=== PATIENT | female | born 1990 | race Caucasian/White ===

== ENCOUNTER 2019-07-14 10:53 | Outpatient (CLI) | payer OTHER, SELFPAY ==
--- NOTE | 2019-07-14 11:08 | ECG_ITS ---
Measurements Intervals [place] Rate: 84 P: 51 [place]: 176 QRS: 67 QRSD: 97 T: 22 QT: 376 QTc: 447 Interpretive Statements SINUS RHYTHM POSSIBLE LEFT ATRIAL ENLARGEMENT INCOMPLETE RIGHT BUNDLE BRANCH BLOCK BORDERLINE ST ABNORMALITY- ANTERIOR LEADS BORDERLINE ECG Electronically Signed On 07-14-2019 11:29:48 CDT by Ziggy Quesada D.O.
== END 2019-07-14 10:54 | disposition home or self-care (01) ==
LOC: ANHLAB 11:01 → ANHCARD 11:05
PROVIDERS: PCP Internal Medicine; Visit Provider Internal Medicine
DX: I10 Essential (primary) hypertension (principal); I45.10 Unspecified right bundle-branch block
CPT/HCPCS: 93005

== ENCOUNTER 2019-09-08 13:30 | Outpatient (CLI) | payer OTHER, MEDICAID, SELFPAY ==
--- NOTE | 2019-09-08 13:48 | ECHO_ITS ---
Patient Info Name: Ginette Ray Age: 29 years : 1990 Gender: Female Ht: 73 in Wt: 250 lbs BSA: 2.45 m2 BP: 131 / 84 mmHg Technical Quality: Good Exam Date: 09/08/2019 1:53 PM Exam Location: [facility] Patient Status: Outpatient Admit Date: 09/08/2019 Staff Ordering Physician: Jessica Robbins NP Chuck Wagon Driver: Bhanu Rose RDCS, RT Attending Provider: Jessica Robbins NP Referring Physician: Rosendo OREILLY; Exam Type: CA echo doppler color flow Study Info Indications I10 - Essential (primary) hypertension Complete two-dimensional, color flow and Doppler transthoracic echocardiogram is performed. Summary 1. Left ventricular chamber dimension is normal. 2. Left ventricular systolic function is normal, estimated at 60-65%. 3. The left ventricular diastolic function is normal. 4. E/e' 6 is not elevated. 5. Global longitudinal strain is normal at -19.3%. 6. There is trace tricuspid valve regurgitation. Left Ventricle E/e' 6 is not elevated. Global longitudinal strain is normal at -19.3%. Left ventricular chamber dimension is normal. Left ventricular systolic function is normal, estimated at 60-65%. The left ventricular diastolic function is normal. Right Ventricle Right ventricular chamber dimension is normal. Right ventricular systolic function is normal. Left Atria Left atrial chamber dimension is normal. Right Atria Right atrial chamber dimension is normal. Aortic Valve Cannot determine number of aortic valve leaflets. The aortic valve is not well visualized. There is no aortic valve stenosis. There is no aortic valve regurgitation. Pulmonic Valve There is no pulmonic regurgitation. Mitral Valve There is no mitral valve stenosis. There is no mitral valve regurgitation. Tricuspid Valve RVSP is not calculated due to an inadequate TR jet. There is trace tricuspid valve regurgitation. Pericardium/Pleural There is no pericardial effusion. Inferior Vena Cava Normal inferior vena cava with >50% collapse upon inspiration consistent with normal right atrial pressure, 5 mmHg. Aorta The aortic root size at the sinus of Valsalva is normal. Left Ventricular Outflow Tract Name Value Normal LVOT 2D LVOT Diameter 2.1 cm LVOT Doppler LVOT Peak Gradient 5 mmHg LVOT Mean Gradient 2 mmHg LVOT VTI 20 cm LVOT VTI/AV VTI Ratio 0.6 LVOT Stroke Volume 68 ml LVOT CO 6.3 l/min LVOT CI 2.6 l/min/m2 Mitral Valve Name Value Normal MV Doppler MV Decel [place] 393 cm/s2 MV PHT 68 ms MV Area (PHT) 3.3 cm2 4.0-5.0
== END 2019-09-08 13:31 | disposition home or self-care (01) ==
PROVIDERS: PCP Internal Medicine; Visit Provider Nurse Practitioner
DX: I10 Essential (primary) hypertension (principal)
CPT/HCPCS: 93306

== ENCOUNTER 2019-10-10 02:13 | Emergency (ER) | payer OTHER, MEDICAID, SELFPAY ==
--- NOTE | ~2019-10-10 | CT_ITS ---
EXAMINATION: CTA chest PE protocol DATE: 10/10/2019 03:59 INDICATION: Dyspnea. Right-sided back pain. TECHNIQUE: Computed tomography (CT) pulmonary angiogram of the chest was performed with 100 mL Omnipa que-350 intravenous contrast. Additional 3D reconstructions utilizing coronal maximum intensity proje ction (MIP) were performed. Automated exposure control and iterative reconstruction technique were em ployed. The dose-length product was 813.93 mGy-cm. COMPARISON: None FINDINGS: Good contrast opacification of the pulmonary arteries. There is mild streak artifact from dense contr ast in the superior vena cava and right atrium. No significant motion artifact. No pulmonary embolism . Minimal groundglass opacities in the dependent left lower lobe and favor atelectasis over pneumonia . Mild discoid atelectasis in the right middle lobe. Couple small noncalcified pleural plaques at the posterior right lower lobe. No pulmonary edema, pleural effusion or pneumothorax. Heart size is norm al. No pericardial effusion. Thoracic aorta is normal in caliber with no dissection. No pathologicall y enlarged thoracic lymphadenopathy. Diffuse hepatic steatosis. Mild thoracic dextrocurvature with mi ld spondylosis. IMPRESSION: 1. No pulmonary embolism or other acute cardiopulmonary disease. Reviewed, dictated and finalized at location A.
--- NOTE | ~2019-10-10 | CT_ITS ---
EXAMINATION: CT abdomen pelvis wo con DATE: 10/10/2019 02:48 INDICATION: Right flank pain. TECHNIQUE: Computed tomography (CT) of the abdomen and pelvis was performed without intravenous contr ast. Automated exposure control and iterative reconstruction technique were employed. The dose-length product was 1546.45 mGy-cm. COMPARISON: None FINDINGS: Lung bases are clear. Heart size is normal. No pericardial or pleural effusion. Liver, gallbladder, s pleen, pancreas, bilateral adrenal glands and kidneys are normal. No urolithiasis or hydronephrosis. Bladder, anteverted uterus and bilateral ovaries are normal. Trace amount of likely physiologic free fluid in the pelvis. Bowels including the appendix are normal. No pathologically enlarged abdominal o r pelvic lymphadenopathy. Minimal lower lumbar spondylosis. IMPRESSION: 1. No acute intra-abdominal/pelvic process. Reviewed, dictated and finalized at location A.
--- NOTE | 2019-10-10 02:19 | ED.GENADULT ---
HPI - General Adult General Chief complaint: Urogenital-Female Stated complaint: R Flank Pain Time Seen by Provider: 10/10/19 02:18 Source: patient Mode of arrival: ambulatory Limitations: no limitations History of Present Illness HPI narrative: Patient is a 29-year-old female who presents for evaluation of dysuria and right flank pain. Patient reports right flank pain began earlier yesterday afternoon, has been mostly constant into this morning. Pain is dull, aching in nature, at times moderate to severe, sharp and stabbing. Pain is associated with nausea. No suprapubic pain. No hematuria. Mild dysuria earlier today, no frequency or hesitancy. Patient denies vaginal bleeding or discharge. Patient states she wants was diagnosed with a possible passed kidney stone when she came to the emergency department with flank pain, had hematuria but no stone found on imaging. Related Data Home Medications Medication Instructions Recorded Confirmed albuterol sulfate 2.5 mg INHALATION TID PRN ml 07/23/19 09/25/19 betamethasone dipropionate 0.05 % 1 applic TOPICAL BID PRN 07/23/19 09/25/19 topical cream drospirenone 3 mg-ethinyl 1 tablet PO DAILY 07/23/19 09/25/19 estradiol 0.02 mg tablet Allergies Allergy/AdvReac Type Severity Reaction Status Date / Time ciprofloxacin Allergy Unknown Anaphylaxis Verified 10/10/19 02:29 Review of Systems Review of Systems: Narrative: CONSTITUTIONAL: Denies fever. CARDIOVASCULAR: Denies chest pain, palpitations, or edema. RESPIRATORY: Denies cough or dyspnea. GASTROINTESTINAL: Denies abdominal pain, nausea, vomiting, or diarrhea. Reports right flank pain. GENITOURINARY: Reports dysuria, denies hematuria SKIN: Denies rash or itching. MUSCULOSKELETAL: Denies joint pain, or myalgia. NEUROLOGIC: Denies headache, numbness, or weakness. [facility] Past Medical History Medical History Anxiety and depression Asthma Eczema Hypertension Surgical History Surgical History H/O endoscopy 08/2018 Family History Family History (Updated 07/22/19 @ 16:25 by Aiyana Driver [facility]) Father Family history unknown Mother Drug misuser in household Social History Social History Smoking status: Never smoker Alcohol intake: current Exam Narrative: Exam Narrative: GENERAL: Awake, alert, conversant HEAD: Normocephalic, atraumatic. EYES: PERRLA and EOMI. ENT: Nares clear, no rhinorrhea or epistaxis. Mucous membranes moist. NECK: Supple. CHEST: No respiratory distress, breathing even and non labored HEART: Regular rate, sinus rhythm ABDOMEN:Non distended, non tender, no suprapubic tenderness, no reproducible flank tenderness EXTREMITIES: Normal range of motion. No edema. SKIN: Warm, dry, no rash. NEURO:No focal deficits. Alert and oriented x3 Course Vital Signs Vital signs: Vital Signs Temperature 36.9 C 10/10/19 02:20 Pulse Rate 91 10/10/19 02:20 Respiratory Rate 18 10/10/19 02:20 Blood Pressure 143/89 H 10/10/19 02:20 Pulse Oximetry 100 10/10/19 02:20 Temperature 36.9 C 10/10/19 02:20 Pulse Rate 73 10/10/19 04:31 Respiratory Rate 18 10/10/19 04:31 Blood Pressure 125/81 10/10/19 04:31 Pulse Oximetry 100 10/10/19 04:31 Medical Decision Making MDM Narrative Medical decision making narrative: Patient presented initially for evaluation of flank pain and dysuria. At the time of assessment, ABCs are intact and vital signs are stable. When I reassessed the patient, she then was explaining to me she is also been experiencing some chest pain and shortness of breath with her symptoms. She states these are not severe, and have been more chronic for her over the past few weeks. Because patient had an elevated d-dimer, obtain a CTA which shows bilateral, peripheral groundglass opacities in the li
[2019-10-10 02:20] VITALS: BP 143/89; PULSE 91; RESP 18; TEMP 36.9; O2SAT 100
[2019-10-10 02:32] LABS: Basophils Absolute Auto 0.1 K/mm3 (0.0-0.1); Basophils Percent Auto 0.5 % (0.2-1.2); Eosinophils Absolute Auto 0.4 K/mm3 (0-0.3); Hematocrit 38.6 % (37.0-47.0); Hemoglobin 12.9 g/dL (12.0-15.0); Immature Granulocyte Absolute 0.05 K/mm3 (0.00-0.031); Immature Granulocyte Percent A 0.4 % (0-0.5); Lymphocytes Absolute Auto 4.77 K/mm3 (0.9-3.2); Lymphocytes Percent Auto 33.8 % (18.3-44.2); Mean Corpuscular HGB Conc 33.4 g/dl (32-36); Mean Corpuscular Hemoglobin 29.7 pg (26-34); Mean Corpuscular Volume 88.9 fl (80-100); Mean Platelet Volume 10.9 fl (7.4-10.4); Monocytes Absolute Auto 0.9 K/mm3 (0.1-0.6); Monocytes Percent Auto 6.3 % (2.6-8.5); Neutrophils Absolute Auto 7.9 K/mm3 (1.3-6.7); Platelet Count Result 245 k/mm3 (150-375); Red Blood Count 4.34 M/mm3 (4.2-5.4); Red Cell Distribution Width 13.2 % (11.5-14.5); White Blood Count 14.1 K/mm3 (4.5-10.0)
[2019-10-10] MEDS: SODIUM CHLORIDE 0.9% IV 1,000 ML 999 ML IV CONT (02:32)
[2019-10-10] MEDS: ONDANSETRON INJ 4 MG/2 ML VIAL IV PUSH (02:33)
[2019-10-10] MEDS: MORPHINE SULFATE 4 MG/ML INJ IV PUSH (02:33)
[2019-10-10 02:34] LABS: Add Urine Microscopic? NO; Appearance Urine Clear (Clear); Bilirubin Urine Negative (Negative); Blood Urine Negative (Negative); Color Urine Yellow (Yellow); Glucose Urine UA Negative (Negative); Ketones Urine Negative (Negative); Leukocyte Esterase Ur Negative LEU/UL (Negative); Nitrate Urine Negative (Negative); Protein Urine Negative (Negative); Specific Grav Ur 1.027 (1.001-1.035); Urobilinogen Urine Negative mg/dL (<2.0)
[2019-10-10 02:46] LABS: Blood Urea Nitrogen 13 mg/dL (7-17); Calcium 9.3 mg/dL (8.4-10.2); Carbon Dioxide 25 mmol/L (22-30); Chloride 104 mmol/L (98-107); Estimated CRCL calculation 131 ml/min; Estimated Glomerular Filt Rate > 60; Glucose 99 mg/dL (65-105); Potassium 3.8 mmol/L (3.4-5.0); Sodium 138 mmol/L (137-145)
--- NOTE | 2019-10-10 03:00 | ECG_ITS ---
Measurements Intervals [place] Rate: 65 P: 29 [place]: 164 QRS: 62 QRSD: 94 T: 26 QT: 412 QTc: 428 Interpretive Statements SINUS RHYTHM BASELINE ARTIFACT- V3, V5 NORMAL ECG Electronically Signed On 10-11-2019 7:20:28 CDT by Ziggy Quesada D.O.
[2019-10-10 03:23] VITALS: BP 126/75; PULSE 66; RESP 18; O2SAT 100
[2019-10-10 03:23] LABS: D Dimer 0.53 ug/mL (<0.48)
[2019-10-10 03:33] LABS: Troponin I < 0.012 ng/mL (0.000-0.034)
[2019-10-10 04:31] VITALS: BP 125/81; PULSE 73; RESP 18; O2SAT 100
[2019-10-10 13:33] LABS: SARS-CoV-2 RNA PCR Negative
== END 2019-10-10 04:50 | disposition home or self-care (01) ==
PROVIDERS: Emergency Provider Emergency Medicine; PCP Internal Medicine
DX: R91.8 Other nonspecific abnormal finding of lung field (principal); R10.9 Unspecified abdominal pain; Z20.828 Contact with and (suspected) exposure to other viral communicable diseases; J45.909 Unspecified asthma, uncomplicated; I10 Essential (primary) hypertension
CPT/HCPCS: 36415; 71275; 74176; 80048; 81003; 81025; 84484; 85025; 85380; 87635; 93005; 96361; 96365; 96375; 99284; C9803; J0131; J2270; J2405; J7030; Q9967; U0003

== ENCOUNTER 2019-10-23 10:33 | Outpatient (CLI) | payer OTHER, MEDICAID, SELFPAY ==
--- NOTE | ~2019-10-23 | XR_ITS ---
XR chest 2V DATE: 10/23/2019 10:58 INDICATION: Nonspecific abnormal finding of lung field; minimal groundglass opacities in the dependen t left lower lobe favoring atelectasis over pneumonia were reported on 11/06/2019 CTA chest scan TECHNIQUE: PA and lateral views COMPARISON: 11/06/2019 CTA chest scan 09/07/2018 2 view chest FINDINGS: The lungs are clear of infiltrate or consolidation. Normal heart size. No hilar or mediastinal enlargement. No pleural effusion or pulmonary vascular con gestion or pneumothorax. IMPRESSION: No active cardiopulmonary disease Reviewed, dictated and finalized at location A.
== END 2019-10-23 10:34 | disposition home or self-care (01) ==
LOC: ANHIMG 10:40
PROVIDERS: PCP Internal Medicine; Visit Provider Clinical Nurse Specialist
DX: R91.8 Other nonspecific abnormal finding of lung field (principal)
CPT/HCPCS: 71046

== ENCOUNTER → 2020-05-22 00:22 | Outpatient (CLI) | payer OTHER, MEDICAID, SELFPAY ==
[2020-05-22 19:49] LABS: SARS-CoV-2 RNA PCR Negative
== END ==
PROVIDERS: Clinical Nurse Specialist; PCP Internal Medicine; Visit Provider Surgery
DX: Z01.812 Encounter for preprocedural laboratory examination (principal); Z20.822 Contact with and (suspected) exposure to COVID-19
CPT/HCPCS: C9803; U0003; U0005

== ENCOUNTER 2020-05-26 00:52 | Day surgery (SDC) | payer OTHER, MEDICAID, SELFPAY ==
[2020-05-20 08:57] VITALS: BMI 34.9
--- NOTE | 2020-05-25 13:01 | WPDANESEPPF ---
Anes - Initial Pre Proc Eval Procedure: Operation Date: 05/26/20 12:00 Proposed Procedures p Excision Of Pilonidal Cyst With Tracts - Cj Adam MD Date/Time: 05/25/20 13:01 Surgeon: Cj Adam MD Pre Op Diagnosis: Pilonidal Cyst Patient Data Age: 29 Gender: F Height: 1.85 m Weight: 120.3 kg Allergies Allergy/AdvReac Type Severity Reaction Status Date / Time ciprofloxacin Allergy Severe Anaphylaxis Verified 05/26/20 10:29 Home Medications Medication Instructions Recorded Confirmed Type betamethasone dipropionate 0.05 % 1 applic TOPICAL BID PRN #45 gm 11/03/19 05/26/20 Rx topical cream albuterol sulfate 90 mcg/actuation 2 puff INHALATION Q4-6H PRN #18 gm 01/05/20 05/26/20 Rx aerosol inhaler albuterol sulfate 2.5 mg INHALATION TID PRN #180 ml 01/13/20 05/26/20 Rx drospirenone (contraceptive) 4 mg 4 mg PO DAILY #84 tablet 03/18/20 05/26/20 Rx (28) tablet lamotrigine 50 mg disintegrating 200 mg PO DAILY tablet 03/22/20 05/26/20 History tablet folic acid 1 mg tablet 1 mg PO DAILY 03/29/20 05/26/20 History methotrexate sodium 2.5 mg tablet 15 mg PO WEEKLY 03/29/20 05/26/20 History lisinopril 10 mg PO DAILY 05/20/20 05/26/20 History Patient hx anesthesia problems: none Family hx anesthesia problems: none PMFSH Past Medical History Medical History Anxiety and depression Asthma Bipolar disorder Chlamydia Eczema GERD (gastroesophageal reflux disease) History of gastric ulcer Hypertension Surgical History Surgical History H/O endoscopy 08/2018 Family History Family History Father Family history unknown Mother Drug misuser in household Diabetes mellitus Grandparent Skin cancer Social History Social History Smoking status: Never smoker Alcohol intake: current Living arrangements: with family 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 Questions were solicited and answers provided to the satisfaction of the patient/family/POA.
[2020-05-26] VITALS (7 sets, daily range): BP systolic 107–131; BP diastolic 58–81; PULSE 85–116; RESP 15–26; TEMP 36.2–37.3; O2SAT 96–100
--- NOTE | 2020-05-26 10:20 | PM.HPGS ---
History of Present Illness History of Present Illness Consent: Risks, benefits, and alternatives have been discussed and questions answered. Patient agrees to proceed with procedure. Chief complaint: Pilonidal Cyst Narrative: Ginette Ray is a 29 year old female that presented about 2 months ago to the office at the request of Saadia Canchola APN for an evaluation of an pilonidal cyst. Patient reports that she has had bleeding about 2-3 times a week for several weeks in the intergluteal cleft prior to her Mar 2020 office visit. Patient reports she had a cyst lanced in the same area about 4 years ago at the ER. She reports that she was placed on antibiotics and the area healed completely and she has not had any problems until just before her recent office visit several months ago. She reports 4 years ago she noticed a bump first, however this time she just noticed drainage in the area. She reports that since she noticed the drainage she has been making sure to take showers daily and keep the area clean and dry to keep it from getting infected. Most recently the area has been quite clean with minimal if any drainage. Other medical history includes asthma. She was just diagnosed with RA in early Mar [address] Subramanian with [facility] in [facility]. She was just placed on Methotrexate and Prednisone for this. She reports the prednisone is only for one month until the Methotrexate has a chance to get working. She is currently taking the Methotrexate once weekly. Review of Systems Constitutional: Constitutional: Reports no additional constitutional complaints, Reports fatigue and Denies malaise Eyes: Eyes: Denies change in vision and Denies loss of vision ENT: Reports Normal hearing present, Denies change in voice, Denies dizziness, Denies hoarseness and Denies sore throat Cardiovascular: Cardiovascular: Denies chest pain, Denies leg edema and Denies dyspnea Respiratory: Respiratory: Denies cough, Denies dyspnea and Denies wheezing Gastrointestinal: Gastrointestinal: Denies hematochezia, Denies change in bowel habits and Denies heartburn Genitourinary: Genitourinary: Denies urinary frequency and Denies urinary incontinence Integumentary/Breasts: Comments: Patient has small pore- like openings that occasionally give her trouble along the crease. Neurologic: Reports Normal hearing present, Denies confusion, Denies dizziness, Denies loss of vision, Denies memory loss and Denies seizure-like activity Psychiatric: Psychiatric: Denies confusion, Denies depression and Denies memory loss Endocrine: Endocrine: Denies cold intolerance and Reports fatigue Hematologic/Lymphatic: Hematologic/Lymphatic: Denies easy bleeding and Denies easy bruising Allergic/Immunologic: Allergic/Immunologic: Denies wheezing PMFSH Past Medical History Medical History Anxiety and depression Asthma Bipolar disorder Chlamydia Eczema GERD (gastroesophageal reflux disease) History of gastric ulcer Hypertension Surgical History Surgical History H/O endoscopy 08/2018 Family History Family History Father Family history unknown Mother Drug misuser in household Diabetes mellitus Grandparent Skin cancer Social History Social History Smoking status: Never smoker Alcohol intake: current Living arrangements: with family 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
[2020-05-26] MEDS: LACTATED RINGERS 1,000 ML 30 ML IV CONT ×2 (11:09→14:24)
--- NOTE | 2020-05-26 12:50 | WPDHPUPDATE1 ---
History and Physical Update Update Date/Time: 05/26/20 12:50 History and Physical has been reviewed, including an updated exam of the patient. There are NO changes in the patient's condition. Risks, benefits, and alternatives of Excision of pilonidal cysts and tracts have been discussed and questions answered. Patient agrees to proceed with procedure.
[2020-05-26] MEDS: ceFAZolin 3 GM/D5W 100 ML 100 ML IVPB (12:57)
[2020-05-26] MEDS: BUPIVACAINE/EPINEPHRINE 0.5% 30 ML VIAL INFILTRATE (13:01)
--- NOTE | 2020-05-26 14:27 | PM.PROC ---
Procedure Note - Detailed Date of procedure: 05/26/20 Pre-op diagnosis: Pilonidal Cyst Post-op diagnosis: same Procedure performed: Excision of multiple pilonidal cysts and tracts in crease Description of procedure: The patient was brought to the operating room and anesthetized on the OR cart prior to being rolled prone on the operating room table. See anesthesia note regarding preop assessment and intubation. Once the patient was appropriately positioned prone on the operating table the buttock cheeks were taped open with nylon tape after applying some benzoin to the skin of the area just lateral to the crease bilaterally. Patient was placed in a slightly head-down knees down position (prone,partially harsha-knifed position). Following this careful prep with Betadine was completed and the area was prepped and draped exposing the serafin crease with a sterile lap placed over the anal opening area. Time-out was performed confirming patient and site of surgery with the surgery team. Following this I use indelible ink marker to carefully outline a S-shaped excision of the 4 openings noted at the serafin crease. It appears that one is larger than when I saw it in the office and so probably there was 2 at that time since I thought I saw 5 at the office. The total length of this incision was about 5 cm. I started more to the patient's left side inferiorly and more to the patient's right side superiorly. Local anesthetic was then infiltrated along the proposed line of incision in both areas with 0.5% Marcaine with epinephrine. Following this incision was made along the previously outlined hess for the incision and this allowed us to perform a S-shaped excision of the skin surrounding the openings to these tracks and then continuing straight down into the subcutaneous tissue we went down to presacral fascia and carefully came underneath all the tracks. I entered one of them superiorly but then I extended my incision slightly out in the subcu tissue to completely excise this one tract. Upon removal of the skin and subcutaneous tissue and the tracts I measured the length of the skin ellipse which was S shaped and it was about 5 cm long and was about 1 cm wide at its middle. Following this closure was obtained after rinsing the wound with approximately 100 cc of sterile saline. I used 2-[address] interrupted buried sutures at 2 different levels in the subcutaneous tissues to bring this wound together after we un-taped the buttocks so that the skin would nicely come together in the midline. We maintained the slightly S-shaped curve of the closure when we did this. On the skin surface interrupted sutures of 3-0 Nylon were used in a vertical mattress technique to bring the skin edges together. The area appeared to be clean and there was no signs of significant infection during the excision. Dressing was applied using a Telfa then an unfolded super sponge followed by 2 Tegaderms to completely seal the dressing on the site leaving the anal opening uncovered. Patient tolerated the procedure well' Estimated blood loss less than 10 cc. Surgeon: Cj Adam MD Fire Operations Forester: MAGDIEL Mendoza, OR 1st assist and MAGDIEL Conner, REGIONAL MEDICAL DIRECTOR. Estimated blood loss (mL): 10 Drains: No Packing: No Pathology: yes (Skin surrounding pilonidal cysts and tracks) Complications: No immediate complications Condition: stable Disposition: PACU Findings: One larger opening that seemed to connect to a larger underlying pilonidal cyst that had granulation tissue within it. The other smaller cysts connected to tracks underlying them but we completely excised all of these during our excision. No difficulty or tension with the incision coming together as we closed.
--- NOTE | 2020-05-26 14:46 | SUR.PHASEI ---
dr hammonds here and talked with pt.
[2020-05-26] MEDS: fentaNYL CITRATE INJ (*CRX) 100 MCG/2 ML VIAL 25 MCG IV PUSH ×2 (15:24→15:26)
== END 2020-05-26 16:20 | disposition home or self-care (01) ==
PROVIDERS: PCP Internal Medicine; Visit Provider Surgery
PROC: (CPT 11772; principal; 2020-05-26 12:00)
DX: L05.91 Pilonidal cyst without abscess (principal); I10 Essential (primary) hypertension; K21.9 Gastro-esophageal reflux disease without esophagitis; F41.8 Other specified anxiety disorders; J45.909 Unspecified asthma, uncomplicated; F31.9 Bipolar disorder, unspecified; Z87.11 Personal history of peptic ulcer disease; E66.9 Obesity, unspecified; Z68.35 Body mass index [BMI] 35.0-35.9, adult
CPT/HCPCS: 11772; 88304; 88305; A9270; C9803; J0330; J0690; J1100; J1170; J2250; J2405; J2704; J3010; J7120; U0003; U0005

== ENCOUNTER 2020-06-21 12:49 | Emergency (ER) | payer OTHER, MEDICAID, SELFPAY ==
--- NOTE | ~2020-06-21 | XR_ITS ---
EXAMINATION: XR lumbar spine min 4V, XR sacrum coccyx min 2V EXAM DATE: 06/21/2020 14:19 INDICATION: Initial encounter following injury, with pain of the lumbar spine, sacrum. Fall. TECHNIQUE: Lumber spine frontal, lateral, bilateral oblique, lateral L5-S1 projections for interpreta tion. Frontal, inlet, lateral projections of the sacrum. Correlation was made with abdomen pelvis CT 10/10/2019. FINDINGS: There is mild anterior wedging of the T11 and T12 vertebral bodies which is more likely chr onic or congenital finding than acute compression fracture (there is no step off or cortical break to suggest it is acute). There are small Schmorl's nodes at the lower thoracic endplates, mild spondyl osis. The vertebral body and disc heights are otherwise well maintained. There are no acute fractur es identified. No spondylolysis. Sacrum, sacroiliac joints, sacral arcuate lines are intact. Mild lum bar facet arthropathy. Paraspinal soft tissue is unremarkable. IMPRESSION: 1. Mild anterior wedged appearance T11 and T12 more likely chronic or congenital finding than acute compression fracture. 2. Mild spondylosis. Reviewed, dictated and finalized at location A. IMPRESSION: 1. Mild anterior wedged appearance T11 and T12 more likely chronic or congenit al finding than acute compression fracture. 2. Mild spondylosis.
[2020-06-21 12:56] VITALS: BP 145/84; PULSE 94; RESP 16; TEMP 36.6; O2SAT 94
[2020-06-21] MEDS: diazePAM (*CRX) 5 MG TABLET PO (13:45)
[2020-06-21] MEDS: KETOROLAC (*BKC) 60 MG/2 ML VIAL IM (13:45)
--- NOTE | 2020-06-21 13:51 | ED.GENADULT ---
HPI - General Adult General Chief complaint: Back Pain/Injury Stated complaint: fell- back pain Time Seen by Provider: 06/21/20 12:51 Source: patient and family Mode of arrival: ambulatory Limitations: no limitations History of Present Illness HPI narrative: Patient is a 29-year-old female who presents to emergency department for evaluation of acute low back pain status post fall patient was pulled down by her dog landing on her buttock and twisting to the side and now has pain in the right paraspinal lumbar musculature down into the sacrum patient denies any head injury syncope loss of consciousness injury occurred just prior to arrival patient has not taken anything for her symptoms and on arrival does not appear distressed and is uncomfortable appearing with activity and movement Related Data Home Medications Medication Instructions Recorded Confirmed lamotrigine 50 mg disintegrating 200 mg PO DAILY tablet 03/22/20 06/16/20 tablet folic acid 1 mg tablet 1 mg PO DAILY 03/29/20 06/16/20 methotrexate sodium 2.5 mg tablet 15 mg PO WEEKLY 03/29/20 06/16/20 Allergies Allergy/AdvReac Type Severity Reaction Status Date / Time ciprofloxacin Allergy Severe Anaphylaxis Verified 06/21/20 12:58 Review of Systems Review of Systems: All systems reviewed & are unremarkable except as noted in HPI and below PMFSH Past Medical History Medical History Anxiety and depression Asthma Bipolar disorder Chlamydia Eczema GERD (gastroesophageal reflux disease) History of gastric ulcer Hypertension (Unknown) Surgical History Surgical History H/O endoscopy 08/2018 Family History Family History Father Family history unknown Mother Drug misuser in household Diabetes mellitus Grandparent Skin cancer Social History Social History Smoking status: Never smoker Alcohol intake: current 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 HEAD: Normocephalic, atraumatic. EYES: PERRLA and EOMI. ENT: Nares clear, no rhinorrhea or epistaxis. Mucous membranes moist. CHEST: Clear to auscultation. No respiratory distress. No wheezes rales or rhonchi HEART: Regular rate and rhythm. No murmur heard. EXTREMITIES: Normal range of motion. No edema. Tenderness of the midline lumbar sacral region no deformities noted as well as the right paraspinal musculature no deformities noted no cervical or thoracic tenderness SKIN: Warm, dry, no rash. NEURO: No focal deficits. Alert and oriented x3. Cranial nerves II through XII grossly intact. Motor and sensory intact and symmetrical in the extremities PSYCH: Normal mood and affect. Course Course Emergency Course: Patient evaluated in the emergency department will be discharged with primary care follow-up managed with pain medicine felt appropriate for outpatient reevaluation. Vital Signs Vital signs: Vital Signs Temperature 97.8 F 06/21/20 12:56 Pulse Rate 94 06/21/20 12:56 Respiratory Rate 16 06/21/20 12:56 Blood Pressure 145/84 H 06/21/20 12:56 Pulse Oximetry 94 06/21/20 12:56 Temperature 97.8 F 06/21/20 12:56 Pulse Rate 94 06/21/20 12:56 Respiratory Rate 16 06/21/20 12:56 Blood Pressure 145/84 H 06/21/20 12:56 Pulse Oximetry 94 06/21/20 12:56 Medical Decision Making MDM Narrative Medical decision making narrative: Patients pain is positional in nature and localized to back without signs of cord compression or cauda equina based on neurological exam, skeletal exam and history. Patient will be discharged with follow-up with primary care for further evaluation given reasons to return. V
[2020-06-21 15:00] VITALS: BP 136/84; PULSE 87; RESP 20; O2SAT 99
== END 2020-06-21 15:01 | disposition home or self-care (01) ==
PROVIDERS: Emergency Provider Emergency Medicine; PCP Internal Medicine
DX: S39.92XA Unspecified injury of lower back, initial encounter (principal); J45.909 Unspecified asthma, uncomplicated; K21.9 Gastro-esophageal reflux disease without esophagitis; I10 Essential (primary) hypertension; M47.814 Spondylosis without myelopathy or radiculopathy, thoracic region; Y93.K1 Activity, walking an animal; W18.39XA Other fall on same level, initial encounter
CPT/HCPCS: 72110; 72220; 96372; 99283; A9270; J1885

== ENCOUNTER 2020-10-26 03:30 | Observation (INO) | payer OTHER, BC, SELFPAY ==
[2020-10-26] VITALS (11 sets, daily range): BP systolic 115–133; BP diastolic 63–96; PULSE 65–84; RESP 14–20; TEMP 36.4–36.7; O2SAT 100; BMI 34.4
--- NOTE | ~2020-10-26 | US_ITS ---
EXAMINATION: US abdomen limited DATE: 10/26/2020 07:25 INDICATION: Right upper quadrant abdominal pain TECHNIQUE: Multiple grayscale and Doppler ultrasound images of the abdomen were obtained. COMPARISON: CT dated 10/26/2020 FINDINGS: The pancreatic head and body are normal in appearance. The pancreatic tail is not visualized. Liver has normal echogenicity and contour, with a smooth surface. No liver lesion identified. No intrahepat ic biliary duct dilation suspected. Portal venous flow was seen in the hepatopetal, normal direction and has normal Doppler waveform. There is a likely impacted shadowing gallstone at the neck of the ga llbladder which is mildly dilated to 4.1 cm but without abnormal wall thickening. Sonographic Rose sign was reported as positive by the clearance diver.The visualized proximal the mid aorta and inferior v edmar cava are normal. IMPRESSION: 1. Cholelithiasis with mildly dilated gallbladder and positive sonographic Rose sign consistent wit h acute cholecystitis. Reviewed, dictated and finalized at location A. IMPRESSION: 1. Cholelithiasis with mildly dilated gallbladder and positive sonographic Murp hy sign consistent with acute cholecystitis.
--- NOTE | ~2020-10-26 | CT_ITS ---
EXAMINATION: CT abdomen pelvis w con DATE: 10/26/2020 05:49 INDICATION: Abdominal pain TECHNIQUE: Computed tomography (CT) of the abdomen and pelvis was performed with 100 mL Omnipaque-350 intravenous contrast. Automated exposure control and iterative reconstruction technique were employe d. The dose-length product was 1315.15 mGy-cm. COMPARISON: 10/10/2019 FINDINGS: Lung bases are clear. Heart size is normal. No pericardial or pleural effusion. Liver, spleen, pancre as, bilateral adrenal glands and kidneys are normal. There are subtle haziness to the pericholecystic fat suspicious for acute cholecystitis with likely impacted gallstone at the neck of the gallbladder , the margins of which aren't discernible from the wall of the gallbladder but which can be seen on p rior ultrasound on which there also was a positive sonographic Rose's sign confirming suspicion for acute cholecystitis. Bowels including the appendix are normal. 3 cm right adnexal cyst. Bladder, moapa elías and left adnexa are unremarkable. No free intraperitoneal gas or fluid. No pathologically enlarge d abdominal or pelvic lymphadenopathy. Minimal lower lumbar spondylosis. IMPRESSION: 1. Acute cholecystitis with likely impacted gallstone at the neck of the gallbladder better appreciat ed on subsequent ultrasound. Reviewed, dictated and finalized at location A. IMPRESSION: 1. Acute cholecystitis with likely impacted gallstone at the neck of the gallbl adder better appreciated on subsequent ultrasound.
[2020-10-26 04:45] LABS: Basophils Absolute Auto 0.1 K/mm3 (0.0-0.1); Basophils Percent Auto 0.5 % (0.2-1.2); Eosinophils Absolute Auto 0.4 K/mm3 (0-0.3); Hematocrit 40.6 % (37.0-47.0); Hemoglobin 13.3 g/dL (12.0-15.0); Immature Granulocyte Absolute 0.03 K/mm3 (0.00-0.031); Immature Granulocyte Percent A 0.3 % (0-0.5); Lymphocytes Percent Auto 29.4 % (18.3-44.2); Mean Corpuscular HGB Conc 32.8 g/dl (32-36); Mean Corpuscular Hemoglobin 29.8 pg (26-34); Mean Platelet Volume 11.1 fl (7.4-10.4); Monocytes Percent Auto 8.1 % (2.6-8.5); Neutrophils Percent Auto 58.7 % (45.5-73.1); Platelet Count Result 207 k/mm3 (150-375); Red Blood Count 4.46 M/mm3 (4.2-5.4); Red Cell Distribution Width 13.8 % (11.5-14.5); White Blood Count 11.9 K/mm3 (4.5-10.0)
[2020-10-26 04:50] LABS: Add Urine Microscopic? YES; Appearance Urine Cloudy (Clear); Bacteria Urine Trace /hpf; Bilirubin Urine Negative (Negative); Blood Urine 1+ (Negative); Color Urine Yellow (Yellow); Glucose Urine UA Negative (Negative); Ketones Urine Negative (Negative); Leukocyte Esterase Ur Negative LEU/UL (Negative); Mucus Urine Few /lpf; Nitrate Urine Negative (Negative); Protein Urine Negative (Negative); RBC Urine 0-2 /hpf (0-2); Specific Grav Ur 1.025 (1.001-1.035); Squamous Epithelial Cell Urine Many /hpf (Few); WBC Urine 0-3 /hpf
[2020-10-26 05:10] LABS: Alanine Aminotransferase 55 U/L (4-35); Albumin Level 4.3 g/dL (3.5-5.1); Alkaline Phosphatase 83 U/L (38-126); Anion Gap 8 mmol/L (8-16); Aspartate Amino Transferase 48 U/L (14-36); Bilirubin,Total 0.5 mg/dL (0.2-1.3); Blood Urea Nitrogen 13 mg/dL (7-17); Calcium 9.5 mg/dL (8.4-10.2); Carbon Dioxide 26 mmol/L (22-30); Chloride 104 mmol/L (98-107); Estimated CRCL calculation 108 ml/min; Estimated Glomerular Filt Rate > 60; Glucose 80 mg/dL (65-110); Lipase 60 U/L (23-300); Potassium 3.7 mmol/L (3.4-5.0); Sodium 138 mmol/L (137-145)
[2020-10-26] MEDS: SODIUM CHLORIDE 0.9% IV 1,000 ML 999 ML IV CONT (05:44)
[2020-10-26] MEDS: ONDANSETRON INJ 4 MG/2 ML VIAL IV PUSH ×2 (05:45→10:20)
[2020-10-26] MEDS: MORPHINE SULFATE (*CRX) 4 MG/ML INJ IV PUSH ×2 (05:45→10:20)
--- NOTE | 2020-10-26 05:46 | ED.GENADULT ---
HPI - General Adult History of Present Illness HPI narrative: Patient 30-year-old female presents the emergency department with chief complaint of abdominal pain. Patient reports that she has pain in the epigastrium that radiates to her back. The patient reports that she started yesterday having pain in her back area but thought but it was secondary to bending over a lot while she is been preparing for a yard sale. Patient states that some nausea with this denies fever reports she has had issues with both kidney stones before in the past and is also had problems with her gallbladder patient reports that she ate some chili last night and reports that the pain is moderate to severe in severity. <Billy Vasquez MD - Last Filed: 10/26/20 07:06> Related Data Home medications: Home Medications Medication Instructions Recorded Confirmed adalimumab 40 mg/0.4 mL 40 mg SUBCUT .biweekly ea 09/20/20 10/26/20 subcutaneous syringe kit omeprazole 20 mg capsule,delayed 20 mg PO DAILY 09/20/20 10/26/20 release clonazepam See Rx Instructions .ROUTE 10/26/20 10/26/20 .COMPLEX PRN duloxetine 30 mg PO DAILY 10/26/20 10/26/20 <Billy Vasquez MD - Last Filed: 10/26/20 07:06> Allergies/adverse reactions: Allergies Allergy/AdvReac Type Severity Reaction Status Date / Time ciprofloxacin Allergy Severe Anaphylaxis Verified 10/26/20 03:32 <Billy Vasquez MD - Last Filed: 10/26/20 07:06> Review of Systems Review of Systems: Narrative: A 10 system review of systems was completed on the patient and is negative except for what is stated in the HPI. Nursing and ancillary documentation was reviewed. <Billy Vasquez MD - Last Filed: 10/26/20 07:06> [facility] Past Medical History Medical History: Medical History Anxiety and depression Arthritis Asthma Bipolar disorder Chlamydia Eczema GERD (gastroesophageal reflux disease) History of gastric ulcer Hypertension (Unknown) Pilonidal cyst without infection (Unknown) Rheumatoid arthritis (~03/2020) <Billy Vasquez MD - Last Filed: 10/26/20 07:06> Surgical History Surgical History: Surgical History H/O endoscopy 08/2018 <Billy Vasquez MD - Last Filed: 10/26/20 07:06> Family History Family History: Family History Father Family history unknown Mother Drug misuser in household Diabetes mellitus Grandparent Skin cancer <Billy Vasquez MD - Last Filed: 10/26/20 07:06> Social History Social History: Social History Smoking status: Never smoker Alcohol intake: current Drinks per week: 0 Alcohol use details: social Substance use: never Substance use type: does not use Additional occupation/education comments: [employer] Spiritual care concerns: No <Billy Vasquez MD - Last Filed: 10/26/20 07:06> Exam Narrative: Exam Narrative: GENERAL: Well-appearing, well-nourished, and in no acute distress. HEAD: Normocephalic, atraumatic. EYES: PERRLA and EOMI. ENT: Nares clear, no rhinorrhea or epistaxis. Mucous membranes moist. NECK: Supple. CHEST: Clear to auscultation. No respiratory distress. HEART: Regular rate and rhythm. No murmur heard. Normal peripheral pulses. ABDOMEN: Soft, nontender, nondistended, normal active bowel sounds. EXTREMITIES: Normal range of motion. No edema. SKIN: Warm, dry, no rash. NEURO: No focal deficits. Alert and oriented x3. PSYCH: Normal mood and affect. <Billy Vasquez MD - Last Filed: 10/26/20 07:06> Course Course Emergency Course: CT scan of the abdomen pelvis shows gallbladder wall thickening without evidence of stones patient is feeling much better at this angy
[2020-10-26] MEDS: SODIUM CHLORIDE 0.9% IV 1,000 ML 125 ML IV CONT ×2 (12:49→20:57)
--- NOTE | 2020-10-26 12:59 | PM.IMHP ---
H&P: HPI History of Present Illness Date/Time: 10/26/20 12:59 This patient is a pleasant 30-year-old overweight white female who I will know well from a previous surgical intervention with a pilonidal cyst. She has intermittently been having upper abdominal pain over the last year. Most recent episode started last evening after she ate chili. She began having increasing epigastric pain and she has been having some pain across her mid back at the level of the costal margin for the last week. Because the pain continued and did not stop after she tried to sleep overnight she presented to the hospital. Workup in the emergency room this morning with a CT scan of the abdomen and pelvis suggesting a stone in the neck of the gallbladder and subsequent ultrasound confirming this and confirming a Rose sign suggestive of acute cholecystitis patient [place] [id number] started on IV antibiotics. I have discussed with her the risks, benefits, and possible complications of a laparoscopic cholecystectomy in the face of acute cholecystitis. She knows that there is about 90% chance that will be able to complete the surgery laparoscopically and about a 10% chance we may have to do an open procedure. 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 Patient denies any chest pain, shortness of breath, or other problems. There has been no dysuria. Will start her on cefotetan 1 g IV piggyback Q 12 hours and follow. I will try to get her on surgery schedule for 1 of the next 2 days. Chief Complaint: epigastric abdominal pain Review of Systems Constitutional: Constitutional: Reports as per HPI and Denies headache(s) Eyes: Eyes: Denies loss of vision and Denies eye pain ENT: Reports Normal hearing present, Denies change in voice, Denies dizziness and Denies headache(s) Cardiovascular: Cardiovascular: Denies chest pain and Denies dyspnea Respiratory: Respiratory: Denies dyspnea and Denies wheezing Gastrointestinal: Gastrointestinal: Reports abdominal pain Comments: Had chili last night with ground hamburger in it. Her pain intensified and has not stopped since that time although she is a little bit better after pain medicine in the ER today. Genitourinary: Comments: Known ovarian cyst on the right, 3 cm in size by CT scan in September of this year at [place]. ( today's CT also shows this as 3 cm in size without other changes) Musculoskeletal: Musculoskeletal: Denies back pain and Denies arthralgias Neurologic: Reports Normal hearing present, Denies dizziness, Denies headache(s), Denies loss of vision and Denies memory loss Psychiatric: Psychiatric: Denies memory loss and Denies panic attacks Endocrine: Endocrine: Reports no additional endocrine complaints Hematologic/Lymphatic: Hematologic/Lymphatic: Reports no additional hematologic/lymphatic complaints Allergic/Immunologic: Allergic/Immunologic: Denies wheezing [facility] Past Medical History Medical History (Updated 10/26/20 @ 16:41 by Cj Adam MD) Anxiety and depression Arthritis Asthma (Unknown) Bipolar disorder Chlamydia Eczema GERD (gastroesophageal reflux disease) History of gastric ulcer Hypertension (10/26/20) Pilonidal cyst without infection (Unknown) Rheumatoid arthritis (Unknown) Surgical History Surgical History H/O endoscopy 08/2018 Family History Family History Father Family history unknown Mother Drug misuser in household Diabetes mellitus Grandparent Skin cancer Social History Social History Smoking status: Never smoker Alcohol intake: current Drinks per week: 0 Alcohol use details: social Substance use: never Substance use type: does not use A
--- NOTE | 2020-10-26 14:53 | ADMGEN ---
This patient, Ginette Ray, was admitted to 2 Medical Room 255-01. Patient/family oriented to hospital policies and general routines including ID bracelet, bed and alarms, visiting hours, pain management, procedures, bathroom and other care routines, personal items, smoking policy, room service/diet, and visiting hours. Information on how to activate the Rapid Response Team has been discussed. Patient/Family are encouraged to report perceived risks to care and to ask questions if they do not understand what they are told or what they should do.
[2020-10-26] MEDS: DOCUSATE SODIUM 100 MG CAPSULE PO (17:45)
[2020-10-26] MEDS: HYDROcodone/acetaminophen (*CRX) 5-325 MG TABLET 1 TAB PO (19:27)
[2020-10-26] MEDS: PANTOPRAZOLE SODIUM IV 40 MG VIAL IV PUSH (20:57)
[2020-10-27] VITALS (9 sets, daily range): BP systolic 115–141; BP diastolic 60–81; PULSE 82–107; RESP 17–27; TEMP 35.8–36.6; O2SAT 92–100
[2020-10-27] MEDS: SODIUM CHLORIDE 0.9% IV 1,000 ML 125 ML IV CONT (05:07)
[2020-10-27] MEDS: HYDROcodone/acetaminophen (*CRX) 5-325 MG TABLET 1 TAB PO (07:15)
--- NOTE | 2020-10-27 08:58 | WPDHPUPDATE1 ---
History and Physical Update Update Date/Time: 10/27/20 08:58 History and Physical has been reviewed, including an updated exam of the patient. There are NO changes in the patient's condition. Risks, benefits, and alternatives have been discussed and questions answered. Patient agrees to proceed with procedure.
[2020-10-27 09:01] LABS: Basophils Absolute Auto 0.1 K/mm3 (0.0-0.1); Basophils Percent Auto 0.6 % (0.2-1.2); Eosinophils Absolute Auto 0.3 K/mm3 (0-0.3); Eosinophils Percent Auto 3.8 % (0-4.4); Hemoglobin 12.4 g/dL (12.0-15.0); Immature Granulocyte Absolute 0.02 K/mm3 (0.00-0.031); Immature Granulocyte Percent A 0.2 % (0-0.5); Lymphocytes Absolute Auto 2.31 K/mm3 (0.9-3.2); Lymphocytes Percent Auto 28.1 % (18.3-44.2); Mean Corpuscular HGB Conc 31.8 g/dl (32-36); Mean Corpuscular Hemoglobin 29.5 pg (26-34); Mean Corpuscular Volume 92.6 fl (80-100); Mean Platelet Volume 11.3 fl (7.4-10.4); Monocytes Absolute Auto 0.7 K/mm3 (0.1-0.6); Monocytes Percent Auto 8.5 % (2.6-8.5); Neutrophils Absolute Auto 4.8 K/mm3 (1.3-6.7); Neutrophils Percent Auto 58.8 % (45.5-73.1); Platelet Count Result 199 k/mm3 (150-375); Red Blood Count 4.21 M/mm3 (4.2-5.4); Red Cell Distribution Width 13.8 % (11.5-14.5); White Blood Count 8.2 K/mm3 (4.5-10.0)
[2020-10-27 09:28] LABS: Alanine Aminotransferase 62 U/L (4-35); Albumin Level 3.6 g/dL (3.5-5.1); Alkaline Phosphatase 74 U/L (38-126); Anion Gap 7 mmol/L (8-16); Aspartate Amino Transferase 47 U/L (14-36); Bilirubin,Total 0.6 mg/dL (0.2-1.3); Blood Urea Nitrogen 5 mg/dL (7-17); Calcium 8.7 mg/dL (8.4-10.2); Carbon Dioxide 26 mmol/L (22-30); Chloride 105 mmol/L (98-107); Estimated CRCL calculation 132 ml/min; Estimated Glomerular Filt Rate > 60; Glucose 87 mg/dL (65-110); Lipase 38 U/L (23-300); Potassium 4.1 mmol/L (3.4-5.0); Sodium 138 mmol/L (137-145)
[2020-10-27] MEDS: ENOXAPARIN 40 MG/0.4 ML SYRINGE SUB-Q (09:30)
[2020-10-27] MEDS: PANTOPRAZOLE SODIUM IV 40 MG VIAL IV PUSH (09:31)
[2020-10-27] MEDS: DULoxetine HCL 30 MG CAPSULE.DR PO (09:31)
[2020-10-27] MEDS: TRIAMCINOLONE ACET 0.1% CREAM 15 GM TUBE 1 APPLIC TOPICAL (09:31)
[2020-10-27] MEDS: DOCUSATE SODIUM 100 MG CAPSULE PO (09:31)
--- NOTE | 2020-10-27 13:43 | WPDANESEPPF ---
Anes - Initial Pre Proc Eval Procedure: Operation Date: 10/27/20 14:45 Proposed Procedures p Laparoscopic Cholecystectomy, Possible Intra Operative Cholangiogram, Possible Open - Cj Adam MD Date/Time: 10/27/20 13:43 Surgeon: Cj Adam MD Pre Op Diagnosis: Acute Cholecistitis Patient Data Age: 30 Gender: F Height: 1.85 m Weight: 118.5 kg Last Vital Signs Temp 36.4 C 10/27/20 05:17 Pulse 82 10/27/20 05:17 Resp 18 10/27/20 05:17 BP 115/60 10/27/20 05:17 Pulse Ox 100 10/27/20 05:17 Allergies Allergy/AdvReac Type Severity Reaction Status Date / Time ciprofloxacin Allergy Severe Anaphylaxis Verified 10/26/20 03:32 Home Medications Medication Instructions Recorded Confirmed Type betamethasone dipropionate 0.05 % 1 applic TOPICAL BID PRN #45 gm 06/01/20 10/26/20 Rx topical cream drospirenone (contraceptive) 4 mg 4 mg PO DAILY #84 tablet 07/15/20 10/26/20 Rx (28) tablet lisinopril 5 mg tablet 5 mg PO DAILY #90 tablet 08/13/20 10/26/20 Rx albuterol sulfate 90 mcg/actuation See Rx Instructions .ROUTE 08/24/20 10/26/20 Rx aerosol inhaler .COMPLEX #8.5 inhaler adalimumab 40 mg/0.4 mL 40 mg SUBCUT .biweekly ea 09/20/20 10/26/20 History subcutaneous syringe kit omeprazole 20 mg capsule,delayed 20 mg PO DAILY 09/20/20 10/26/20 History release phentermine 37.5 mg tablet 37.5 mg PO DAILY #30 tablet 10/08/20 10/26/20 Rx clonazepam See Rx Instructions .ROUTE 10/26/20 10/26/20 History .COMPLEX PRN duloxetine 30 mg PO DAILY 10/26/20 10/26/20 History Laboratory Tests 10/27/20 10/27/20 10/27/20 08:34 08:34 08:34 WBC 8.2 K/mm3 K/mm3 (4.5-10.0) RBC 4.21 M/mm3 M/mm3 (4.2-5.4) Hgb 12.4 g/dL g/dL (12.0-15.0) Hct 39.0 % % (37.0-47.0) MCV 92.6 fl fl (80-100) MCH 29.5 pg pg (26-34) MCHC 31.8 g/dl L g/dl (32-36) RDW 13.8 % % (11.5-14.5) Plt Count 199 k/mm3 k/mm3 (150-375) MPV 11.3 fl H fl (7.4-10.4) Immature Gran % (Auto) 0.2 % % (0-0.5) Neut % (Auto) 58.8 % % (45.5-73.1) Lymph % (Auto) 28.1 % % (18.3-44.2) [place]oula % (Auto) 8.5 % % (2.6-8.5) Eos % (Auto) 3.8 % % (0-4.4) Baso % (Auto) 0.6 % % (0.2-1.2) Lymph # (Auto) 2.31 K/mm3 K/mm3 (0.9-3.2) [place] # (Auto) 0.7 K/mm3 H K/mm3 (0.1-0.6) Eos # (Auto) 0.3 K/mm3 K/mm3 (0-0.3) Baso # (Auto) 0.1 K/mm3 K/mm3 (0.0-0.1) Abs Immat Gran (auto) 0.02 K/mm3 K/mm3 (0.00-0.031) Absolute Neuts (auto) 4.8 K/mm3 K/mm3 (1.3-6.7) Absolute Nucleated RBC 0.0 K/mm3 K/mm3 (0.0-0.012) Nucleated RBC % 0.0 % % (0.0-0.2) Sodium 138 mmol/L mmol/L (137-145) Potassium 4.1 mmol/L mmol/L (3.4-5.0) Chloride 105 mmol/L mmol/L (98-107) Carbon Dioxide 26 mmol/L mmol/L (22-30) Anion Gap 7 mmol/L L mmol/L (8-16) BUN 5 mg/dL L D mg/dL (7-17) Creatinine 0.80 mg/dL mg/dL (0.7-1.0) Estim Creat Clear Calc 132 ml/min ml/min Estimated GFR > 60 (59 - ) Glucose 87 mg/dL mg/dL (65-110) Calcium 8.7 mg/dL mg/dL (8.4-10.2) Magnesium 2.0 mg/dL mg/dL (1.6-2.3) Total Bilirubin 0.6 mg/dL mg/dL (0.2-1.3) AST 47 U/L H U/L (14-36) ALT 62 U/L H U/L (4-35) Alkaline Phosphatase 74 U/L U/L (38-126) Total Protein 7.0 g/dL g/dL (6.3-8.2) Albumin 3.6 g/dL g/dL (3.5-5.1) Lipase 38 U/L U/L (23-300) Blood Type A Positive Antibody Screen Negative Patient hx anesthesia problems: none Family hx anesthesia problems: none [facility] Past Medical History Medical History (Updated 10/26/20 @ 16:41 by Cj Adam MD) Anxiety and depression Arthritis Asthma (Unk
[2020-10-27] MEDS: LACTATED RINGERS 1,000 ML 30 ML IV CONT ×2 (14:00→16:44)
[2020-10-27] MEDS: BUPIVACAINE/EPINEPHRINE 0.5% 30 ML VIAL INFILTRATE (16:26)
--- NOTE | 2020-10-27 16:43 | P.OP_ITS ---
Procedure Note - Detailed Date of Procedure 10/27/20 Pre-op Diagnosis Acute Cholecystitis with Cholelithiasis Post-op Diagnosis same Procedure Performed laparoscopic cholecystectomy Surgeon Cj Adam MD Preparation Center Coordinator Natalya VELOZ,[employer] MARKET[employer] SPECIALIST Anesthesia general Indications The patient developed continuous right upper quadrant epigastric pain and presented to the emergency room. Both CT and ultrasound suggested acute cholecystitis. Findings Significant edema in the wall the gallbladder with no adhesions to the underside of the gallbladder. Moderate level acute cholecystitis. I could not see the patient's 3 cm ovarian cyst in the pelvis, because we did not put her in steep Trendelenburg. Description of Procedure Patient was seen preoperatively in the holding area and risks, benefits and alternatives confirmed. Patient was taken to the operating room and general anesthesia was induced. A time out was then preformed with the surgery team confirming patient and site of surgery. The abdomen was prepped and draped in the usual sterile fashion. Incision was made just below the umbilicus with an 11 blade knife. I placed 2 stay sutures of O- Vicryl on either side of the mid- line fascia beneath the umbilicus and was then able to slide in the Magana cannula through the fascial defect into the peritoneum. First under low flow and then under high flow the abdomen was insufflated with carbon dioxide never exceeding a pressure of 14. Three 5 mm trocars were then introduced under direct vision. The following trocars were introduced under direct vision: a 5 mm in the epigastrium and two 5 mm trocars along the right costal margin laterally in the subcostal area. There were not any adhesions to the underside of the gallbladder. I then carefully used the L- shaped cautery and the [place] dissector to dissect out the triangle of Calot. I then was able to dissect out both the cystic duct and cystic artery and identify a window of safety. The gall bladder was grasped and the cystic duct and artery were dissected free and clipped with an 5 mm endo-clip integration consultant. The cystic duct and artery were clipped with use of 2 clips on the patient's side 1 on the gallbladder side utilizing a 5 mm endoclip-integration consultant. The cystic duct was then transected. The cystic artery was also transected at this point. The gall bladder was removed using electrocautery and then removed from the abdomen using a large 10 mm grasper via the umbilical incision. In order to get the large stone out of the abdomen within the gallbladder I did make the fascial defect slightly larger with Villatoro scissors. The trocars were removed visualizing hemostasis and the remaining gas evacuated. The large trocar site at the umbilicus was closed with use of the 2 stay sutures of 0 Vicryl mentioned above and also a figure of 8 O-Vicryl suture. The 2 stay sutures mentioned above on either side of the fascia were also tied together to help approximate this midline fascia. Further local anesthetic was placed into each incision for postop pain control. The skin incisions were closed with subcuticular suture of 4-0 Monocryl. Surgical glue then was applied to all the incisions. Patient tolerated the procedure well was taken to the recovery room in good condition. Implants none Estimated Blood Loss 10 Drains No Packing No Pathology yes ( Gallbladder, with palpable stone within.) Complications No immediate complications Condition stable Disposition PACU
[2020-10-27] MEDS: fentaNYL CITRATE INJ (*CRX) 100 MCG/2 ML VIAL 25 MCG IV PUSH ×4 (17:04→17:15)
[2020-10-27] MEDS: HYDROmorphone HCL INJ (*CRX) 1 MG/ML SYR 0.25 MG IV PUSH ×3 (17:21→17:44)
[2020-10-27] MEDS: MORPHINE SULFATE (*CRX) 2 MG/ML INJ IV PUSH (18:47)
--- NOTE | 2020-10-28 22:05 | PM.DS ---
DS: Admitting Diagnosis Admitting Diagnosis Acute on Chronic Cholecystitis with Cholelithiasis. DS: Discharge Diagnosis Discharge Diagnosis (1) Cholelithiasis and acute cholecystitis without obstruction: Onset Date: ~10/25/20 Code(s): K80.00 - Calculus of gallbladder with acute cholecystitis without obstruction Status: Acute Assessment and Plan: This was the main reason for the admission. Patient underwent laparoscopic cholecystectomy while being on antibiotics throughout the time in the hospital. (2) Right upper quadrant abdominal pain: Onset Date: 10/25/20 Code(s): R10.11 - Right upper quadrant pain Status: Acute Assessment and Plan: Related to 1. See that. (3) Rheumatoid arthritis: Onset Date: Unknown Qualifiers: Rheumatoid arthritis location: unspecified site Rheumatoid factor presence: with rheumatoid factor Qualified Code(s): M05.9 - Rheumatoid arthritis with rheumatoid factor, unspecified Code(s): M06.9 - Rheumatoid arthritis, unspecified Status: Acute Assessment and Plan: patient will continue on [place] as scheduled once she goes home. (4) Hypertension: Onset Date: 10/26/20 Qualifiers: Hypertension type: essential hypertension Qualified Code(s): I10 - Essential (primary) hypertension Code(s): I10 - Essential (primary) hypertension Status: Acute Assessment and Plan: Patient will continue her lisinopril for this (5) Right ovarian cyst: Code(s): N83.201 - Unspecified ovarian cyst, right side Status: Acute Assessment and Plan: The Patient will F/U with her Conference Manager on this. ( CT in ED showed that the simple Rt. ovarian cyst was still About 3 cm in size). DS: Summary Hospital Course Reason for hospitalization: Acute cholecystitis with cholelithiasis and right upper quadrant pain. Hospital Course: patient has fairly unremarkable hospital course. She came through the ER because continuous right upper quadrant pain. CT scan ultrasound done in the ED revealed evidence of possible acute cholecystitis. Therefore, the patient was started on antibiotics and admitted to the hospital. Schedule was too busy to operate on her the day of admission therefore the following day she was taken the operating room after appropriate consent and a laparoscopic cholecystectomy was able to be performed without difficulty. She had fairly uneventful recovery and was discharged that evening after tolerating a low-fat diet. Status at Discharge Cognitive/behavioral status at discharge: Normal Functional status at discharge: independent ambulation Overall status at discharge: patient is back to baseline Time Spent with Patient Time attestation: Total time spent providing and/or coordinating discharge services: Time spent: Less than 30 minutes Specific discharge activities: patient will follow low-fat diet for 1 week and then begin adding a few things back. She will let her OB Gyne nupur Aldana know that she had a CT scan in the emergency room which showed the right ovarian cyst still to be 3 cm in size. Therefore she may not need a ultrasound coming up the next few weeks but rather could be followed at longer time period since this should be appropriate imaging for rechecking the cyst. Exam Const: General: cooperative, no acute distress, alert and awake Orientation/consciousness: patient oriented x3 HENMT: Mouth: Yes moist mucous membranes Neck: Neck: normal visual inspection Chest: Chest palpation & inspection: normal inspection of the chest Resp: Effort & Inspection: normal respiratory effort Auscultation: clear to auscultation bilaterally Cardio: Jugular venous distension: no JVD Rate: regular rate Rhythm: regular rhythm GI: Inspection: incision (Clean and Dry with surgical glue in place.) GI Palp: Yes abdominal tenderness and Yes No hepatosplenomegaly present (mild/incisional)
== END 2020-10-27 20:17 | disposition home or self-care (01) ==
LOC: ANHED 07:44 → ANH3MEDSUR 12:19 → ANH2MED 14:36
PROVIDERS: Emergency Medicine; Admitting Provider Surgery; Emergency Provider Emergency Medicine; PCP Internal Medicine; Visit Provider Surgery
PROC: 0FT44ZZ Resection of Gallbladder, Percutaneous Endoscopic Approach (ICD-10-PCS; CPT 47562; principal; 2020-10-27 14:45)
DX: K80.10 Calculus of gallbladder with chronic cholecystitis without obstruction (principal); N83.201 Unspecified ovarian cyst, right side; M05.9 Rheumatoid arthritis with rheumatoid factor, unspecified; I10 Essential (primary) hypertension; J45.909 Unspecified asthma, uncomplicated; R59.9 Enlarged lymph nodes, unspecified
CPT/HCPCS: 47562; 36415; 74177; 76705; 80053; 81001; 81025; 83690; 83735; 85025; 86850; 86900; 86901; 88304; 96361; 96365; 96372; 96375; 96376; 99285; A9270; C9113; G0378; J1100; J1170; J1650; J2250; J2270; J2405; J2704; J2710; J3010; J7030; J7120; Q9966; Q9967

== ENCOUNTER 2020-11-22 08:43 | Outpatient (CLI) | payer OTHER, BC, SELFPAY ==
--- NOTE | ~2020-11-22 | US_ITS ---
EXAMINATION: US pelvic complete w TV DATE: 11/22/2020 09:20 INDICATION: Ovarian cyst. Irregular menses. Comparison:No prior studies for comparison. TECHNIQUE: Multiple transabdominal and endovaginal sonographic images of the pelvis performed. FINDINGS: The uterus measures 7.6 x 2.8 x 3.8 cm. The endometrial complex measures 2 mm. The left ovary measures 7.6 x 2.8 x 3.8 cm and the right ovary is not visualized. There is a 1.3 cm l eft ovarian follicle. Normal Doppler signal in the left ovary. There is no free fluid in the pelvis. There are no abnormal masses seen on either side. IMPRESSION: 1. Unremarkable pelvic ultrasound Reviewed, dictated and finalized at location A.
== END 2020-11-22 08:44 | disposition home or self-care (01) ==
PROVIDERS: PCP Internal Medicine; Visit Provider Obstetrics & Gynecology
DX: N83.201 Unspecified ovarian cyst, right side (principal)
CPT/HCPCS: 76830; 76856

== ENCOUNTER 2021-02-07 22:00 | Emergency (ER) | payer OTHER, BC, SELFPAY ==
--- NOTE | ~2021-02-07 | XR_ITS ---
XR chest 2V DATE: 02/07/2021 23:51 INDICATION: Chest pressure TECHNIQUE: PA and lateral views COMPARISON: 10/23/2019 PA and lateral views FINDINGS: Heart size is within normal limits. No hilar or mediastinal enlargement. No pulmonary infil trate or consolidation, pleural effusion or pulmonary vascular congestion or pneumothorax. Mild dextro scoliosis of the thoracic spine. Status post cholecystectomy. IMPRESSION: No active cardiopulmonary disease Reviewed, dictated and finalized at location A.
[2021-02-07 22:04] VITALS: BP 154/93; PULSE 98; RESP 20; TEMP 36.2; O2SAT 100
--- NOTE | 2021-02-07 23:22 | ECG_ITS ---
Measurements Intervals [place] Rate: 71 P: 62 AR: 159 QRS: 32 QRSD: 98 T: 11 QT: 405 QTc: 440 Interpretive Statements SINUS RHYTHM BORDERLINE R WAVE PROGRESSION, ANTERIOR LEADS T WAVE ABNORMALITY IN ANTERIOR LEADS- CONSIDER ISCHEMIA BASELINE ARTIFACT- I, III ABNORMAL ECG Electronically Signed On 02-08-2021 8:05:10 CDT by Ziggy Quesada D.O.
[2021-02-07] MEDS: ALBUTEROL SULFATE NEB 2.5 MG/3 ML INH INHALATION (23:33)
[2021-02-07] MEDS: IPRATROPIUM BR 0.02% INH SOLN 0.5 MG/2.5 ML VIAL INHALATION (23:33)
[2021-02-07 23:43] VITALS: PULSE 78
[2021-02-07] MEDS: methylPREDNISolone SOD SUCC 125 MG VIAL IV PUSH (23:46)
--- NOTE | 2021-02-07 23:47 | ED.GENADULT ---
HPI - General Adult General Chief complaint: Upper Respiratory Infection Stated complaint: sob, cough, muscle aches Time Seen by Provider: 02/07/21 22:17 Source: patient Mode of arrival: ambulatory Limitations: no limitations History of Present Illness HPI narrative: Pt presents for evaluation of respiratory symptoms which started nine days ago. She initially had some sinus congestion, sniffling and thick nasal drainage. She then developed a frontal headache and chest pressure last . She contacted her PCP and was given scripts for augmentin and a medrol dose goldie, which she has been taking as directed. She has also been taking angelito, flonase and mucinex DM. She has not seen a considerable improvement in her symptoms so came here for further evaluation. She has an underlying hx of asthma and has been using her nebs 1-2 times per day and has also been using albuterol inhaler about every four hours. She has experienced some urinary frequency as of late without other urinary symptoms. 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 She states she was not allowed to leave early. No hx of COVID. She has received three doses of COVID vaccination. Related Data Home Medications Medication Instructions Recorded Confirmed adalimumab 40 mg/0.4 mL 40 mg SUBCUT .biweekly ea 09/20/20 02/03/21 subcutaneous syringe kit duloxetine 30 mg capsule,delayed 60 mg PO DAILY cap 02/03/21 02/03/21 release norethindrone (contraceptive) 0.35 0.35 mg PO DAILY 02/03/21 02/03/21 mg tablet Allergies Allergy/AdvReac Type Severity Reaction Status Date / Time ciprofloxacin Allergy Severe Anaphylaxis Verified 11/15/20 09:17 Review of Systems Review of Systems: CONSTITUTIONAL: Denies fever, chills, or sweats. EYES: Denies visual changes, redness, or discharge. ENT: Reports sinus congestion with clear rhinorrhea. Denies sore throat, or otalgia. CARDIOVASCULAR: Reports chest pressure. Denies chest pain, palpitations, or edema. RESPIRATORY: Denies cough or dyspnea. GASTROINTESTINAL: Denies abdominal pain, nausea, vomiting, or diarrhea. GENITOURINARY: Reports urinary frequency. Denies dysuria or hematuria. SKIN: Denies rash or itching. MUSCULOSKELETAL: Reports sporadic joint pain. Denies back pain or myalgia. NEUROLOGIC: Reports headache. Denies numbness, dizziness, or weakness. PSYCHIATRIC: Denies anxiety or depression. [facility] Past Medical History Medical History Anxiety and depression Arthritis Asthma (Unknown) Bipolar disorder Chlamydia Eczema FH: cholecystectomy GERD (gastroesophageal reflux disease) History of gastric ulcer Hypertension (10/26/20) Pilonidal cyst without infection (Unknown) Rheumatoid arthritis (Unknown) Right ovarian cyst Surgical History Surgical History H/O endoscopy 08/2018 Family History Family History Father Family history unknown Mother Drug misuser in household Diabetes mellitus Grandparent Skin cancer Social History Social History Smoking status: Never smoker Alcohol intake: current Drinks per week: 0 Alcohol use details: social Substance use: never Substance use type: does not use 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 HEAD: Normocephalic, atraumatic. EYES: PERRLA and EOMI. ENT: Nares clear no epistaxis. Clear rhinorrhea noted. Mucous membranes moist. Oropharynx without tonsillar hypertrophy exudate or other lesions. Bilateral TMs pearly keller nonbulging NECK: Supple. No adenopathy or masses. No carotid bruits or JVD CHEST: Clear to aus
[2021-02-07 23:51] LABS: Basophils Absolute Auto 0.1 K/mm3 (0.0-0.1); Basophils Percent Auto 0.5 % (0.2-1.2); Eosinophils Absolute Auto 0.1 K/mm3 (0-0.3); Eosinophils Percent Auto 0.8 % (0-4.4); Hematocrit 42.6 % (37.0-47.0); Hemoglobin 14.3 g/dL (12.0-15.0); Immature Granulocyte Absolute 0.07 K/mm3 (0.00-0.031); Immature Granulocyte Percent A 0.4 % (0-0.5); Lymphocytes Absolute Auto 4.06 K/mm3 (0.9-3.2); Lymphocytes Percent Auto 23.1 % (18.3-44.2); Mean Corpuscular HGB Conc 33.6 g/dl (32-36); Mean Corpuscular Hemoglobin 30.8 pg (26-34); Mean Corpuscular Volume 91.8 fl (80-100); Mean Platelet Volume 10.3 fl (7.4-10.4); Monocytes Absolute Auto 1.1 K/mm3 (0.1-0.6); Monocytes Percent Auto 6.4 % (2.6-8.5); Neutrophils Absolute Auto 12.1 K/mm3 (1.3-6.7); Neutrophils Percent Auto 68.8 % (45.5-73.1); Platelet Count Result 270 k/mm3 (150-375); Red Blood Count 4.64 M/mm3 (4.2-5.4); Red Cell Distribution Width 13.2 % (11.5-14.5); White Blood Count 17.6 K/mm3 (4.5-10.0)
[2021-02-07 23:54] LABS: Add Urine Microscopic? YES; Appearance Urine Cloudy (Clear); Bilirubin Urine Negative (Negative); Blood Urine Negative (Negative); Color Urine Yellow (Yellow); Glucose Urine UA Negative (Negative); Ketones Urine Negative (Negative); Leukocyte Esterase Ur Negative LEU/UL (Negative); Mucus Urine Rare /lpf; Nitrate Urine Negative (Negative); Protein Urine Negative (Negative); Squamous Epithelial Cell Urine Few /hpf (Few); Urobilinogen Urine Negative mg/dL (<2.0); WBC Urine 0-3 /hpf
[2021-02-08 00:12] LABS: Alanine Aminotransferase 30 U/L (4-35); Albumin Level 4.3 g/dL (3.5-5.1); Alkaline Phosphatase 81 U/L (38-126); Anion Gap 9 mmol/L (8-16); Aspartate Amino Transferase 33 U/L (14-36); Bilirubin,Total 0.4 mg/dL (0.2-1.3); Blood Urea Nitrogen 17 mg/dL (7-17); Calcium 9.5 mg/dL (8.4-10.2); Carbon Dioxide 27 mmol/L (22-30); Chloride 102 mmol/L (98-107); Estimated CRCL calculation 129 ml/min; Estimated Glomerular Filt Rate > 60; Glucose 95 mg/dL (65-110); Potassium 4.1 mmol/L (3.4-5.0); Sodium 138 mmol/L (137-145)
[2021-02-08 00:14] VITALS: BP 129/82; PULSE 76; RESP 16; O2SAT 100
[2021-02-08 00:23] LABS: Troponin I < 0.012 ng/mL (0.000-0.034)
[2021-02-08 01:00] VITALS: O2SAT 100
[2021-02-08 01:41] VITALS: BP 114/79; PULSE 80; RESP 18; O2SAT 100
[2021-02-08 18:29] LABS: SARS-CoV-2 RNA PCR Negative
== END 2021-02-08 01:43 | disposition home or self-care (01) ==
PROVIDERS: Emergency Provider Nurse Practitioner; PCP Internal Medicine
DX: J01.90 Acute sinusitis, unspecified (principal); B96.89 Other specified bacterial agents as the cause of diseases classified elsewhere; Z20.822 Contact with and (suspected) exposure to COVID-19; J45.909 Unspecified asthma, uncomplicated; K21.9 Gastro-esophageal reflux disease without esophagitis; I10 Essential (primary) hypertension; M06.9 Rheumatoid arthritis, unspecified; F41.9 Anxiety disorder, unspecified; F31.9 Bipolar disorder, unspecified; R94.31 Abnormal electrocardiogram [ECG] [EKG]
CPT/HCPCS: 36415; 71046; 80053; 81001; 81025; 84484; 85025; 87081; 87880; 93005; 94640; 96374; 99284; C9803; J2930; U0003; U0005

== ENCOUNTER 2021-04-21 09:41 | Outpatient (CLI) | payer BC, SELFPAY ==
--- NOTE | 2021-04-21 11:00 | NEURO_ITS ---
Impression: # Complains of numbness of lower extremities. # Normal nerve conduction study. # Normal needle/EMG exam. # Problems could be related to small fiber neuropathy. # Clinical correlation recommended. Nerve Conduction Studies Anti Sensory Summary Table Stim Site NR Peak (ms) P-T Amp (?V) Site1 Site2 Delta-P (ms) Dist (cm) Dmitri (m/s) Left Sup Fibular Anti Sensory (Ant Lat Mall) 14 cm 3.1 11.2 14 cm Ant Lat Mall 3.1 16.0 52 Right Sup Fibular Anti Sensory (Ant Lat Mall) 14 cm 3.0 6.4 14 cm Ant Lat Mall 3.0 16.0 53 Left Sural Anti Sensory (Lat Mall) Calf 3.9 24.1 Calf Lat Mall 3.9 16.0 41 Right Sural Anti Sensory (Lat Mall) Calf 3.8 3.9 Calf Lat Mall 3.8 16.0 42 Motor Summary Table Stim Site NR Onset (ms) O-P Amp (mV) Site1 Site2 Delta-0 (ms) Dist (cm) Dmitri (m/s) Left Peroneal Motor (Vastus Med) Ankle 4.3 1.8 Popit Ankle 9.1 40.0 44 Popit 13.4 2.1 Right Peroneal Motor (Vastus Med) Ankle 4.4 2.2 Popit Ankle 8.4 38.0 45 Popit 12.8 2.2 Left Tibial Motor (Abd Nagy Brev) Ankle 5.1 3.9 Knee Ankle 9.6 42.0 44 Knee 14.7 3.2 Right Tibial Motor (Abd Nagy Brev) Ankle 4.8 5.8 Knee Ankle 10.2 42.0 41 Knee 15.0 4.3 F Wave Studies NR F-Lat (ms) L-R F-Lat (ms) Left Peroneal (Mrkrs) (EDB) 58.24 1.10 Right Peroneal (Mrkrs) (EDB) 57.15 1.10 Left Tibial (Mrkrs) (Abd Hallucis) 57.98 0.74 Right Tibial (Mrkrs) (Abd Hallucis) 58.72 0.74 EMG Side Muscle Nerve Root Ins Act Fibs Amp Dur Recrt Comment Right AntTibialis Dp Br Fibular L4-5 Nml Nml Nml Nml Nml Right Gastroc Tibial S1-2 Nml Nml Nml Nml Nml Right Fibularis Long Sup Br Fibular L5-S1 Nml Nml Nml Nml Nml Right Flex Dig Long Tibial L5-S2 Nml Nml Nml Nml Nml Right Ext Dig Brev Dp Br Fibular L5, S1 Nml Nml Nml Nml Nml Left AntTibialis Dp Br Fibular L4-5 Nml Nml Nml Nml Nml Left Gastroc Tibial S1-2 Nml Nml Nml Nml Nml Left Fibularis Long Sup Br Fibular L5-S1 Nml Nml Nml Nml Nml Left Flex Dig Long Tibial L5-S2 Nml Nml Nml Nml Nml Left Ext Dig Brev Dp Br Fibular L5, S1 Nml Nml Nml Nml Nml MTDD
== END 2021-04-21 09:42 | disposition home or self-care (01) ==
LOC: ANHNEURO 09:43
PROVIDERS: PCP Internal Medicine; Visit Provider Clinical Nurse Specialist
DX: R20.0 Anesthesia of skin (principal); R20.2 Paresthesia of skin
CPT/HCPCS: 95886; 95910

== ENCOUNTER 2021-05-12 09:43 | Outpatient (CLI) | payer BC, SELFPAY ==
--- NOTE | ~2021-05-12 | MR_ITS ---
EXAMINATION: MR lumbar spine wo con DATE: 05/12/2021 10:29 INDICATION: Lumbar radiculopathy TECHNIQUE: Magnetic resonance imaging (MRI) of the lumbar spine was performed without intravenous con trast. Sequences included sagittal T2-weighted FSE, sagittal T2-weighted FS FSE, sagittal T1-weighted FSE, and axial T2-weighted FSE. COMPARISON: None FINDINGS: Alignment is normal. Vertebral body heights are normal with a few Schmorl's nodes along the inferior endplates of 11, T12 in the superior endplate of L4. There are couple T2 hyperintense slightly T1 hyp ointense lesions at L1 and L4. Otherwise normal marrow signal throughout. Disc heights and signal are normal. There is an annular fissure and small central disc protrusion at L5-S1. The conus medullaris terminates at L1. There is normal signal in the caudal spinal cord. Paravertebral soft tissues are u nremarkable. The following disc levels are specifically discussed: T12-L1: Disc is mildly bulging. There is mild bilateral facet joint osteoarthritis. There is no neura l foraminal stenosis. There is no central canal stenosis. L1-L2: The disc does not extend beyond the endplate margin. There is mild bilateral facet joint osteo arthritis. There is no neural foraminal stenosis. There is no central canal stenosis. L2-L3: The disc does not extend beyond the endplate margin. There is mild bilateral facet joint osteo arthritis. There is no neural foraminal stenosis. There is no central canal stenosis. L3-L4: Disc is minimally bulging. There is mild bilateral facet joint osteoarthritis. There is mild l eft and minimal right neural foraminal stenosis. There is no central canal stenosis. L4-L5: Disc is minimally bulging. There is mild bilateral facet joint osteoarthritis. There is mild l eft and minimal right neural foraminal stenosis. There is no central canal stenosis. L5-S1: Annular fissure and small central disc protrusion. There is mild bilateral facet joint osteoar thritis. There is mild left and minimal right neural foraminal stenosis. There is no central canal st enosis. IMPRESSION: 1. Mild lumbar spondylosis. 2. 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 Reviewed, dictated and finalized at location A. KEEPER IMPRESSION: 1. Mild lumbar spondylosis. 2. Couple indeterminate T2 hyperintense, T1 hypointense lesions at L1 and L4 wh ich in the absence of known malignancy most likely represent atypical hemangiom as.
== END 2021-05-12 09:44 | disposition home or self-care (01) ==
LOC: ANHIMG 09:49
PROVIDERS: PCP Internal Medicine; Visit Provider Nurse Practitioner
DX: M54.16 Radiculopathy, lumbar region (principal); M47.816 Spondylosis without myelopathy or radiculopathy, lumbar region; M89.9 Disorder of bone, unspecified
CPT/HCPCS: 72148

== ENCOUNTER 2021-10-02 19:20 | Emergency (ER) | payer BC, SELFPAY ==
--- NOTE | ~2021-10-02 | XR_ITS ---
EXAM: XR lumbar spine 2-3V DATE: 10/02/2021 20:58 HISTORY: lower ext parasthesias,PAIN MORE LT SIDE,HX BULGING DISCS . COMPARISON: 06/21/2020. FINDINGS: 6 nonrib-bearing lumbar-type vertebral bodies which may be due to hypoplastic ribs at T12 or 6 true lumbar vertebral bodies. Pedicles intact. Normal vertebral body alignment. Vertebral body h eights preserved. Mild degenerative disc disease at L5-S1. Lower lumbar facet arthropathy. No fractur e or dislocation. IMPRESSION: No acute fracture or traumatic malalignment in the lumbar spine. Reviewed, dictated and finalized at location K.
--- NOTE | ~2021-10-02 | XR_ITS ---
EXAM: XR_CERV2-3V_CR DATE: 10/02/2021 20:57 HISTORY: upper extremity parasthesias,NUMBNESS,X 1 WK . COMPARISON: None available. FINDINGS: Craniocervical association and atlantoaxial joint are normal. No prevertebral soft tissue swelling. The prevertebral fat stripe is preserved. Focal cervical kyphosis centered at C5-6. Moderat e anterior disc space narrowing at C5-6 with trace anterior narrowing at C5-6 and C7-T1. Vertebral miguelangel dy heights are maintained. There is widening of the posterior elements and uncovering of the facets a t C5-6, remaining posterior elements are normal. IMPRESSION: 1. Findings concerning for ligamentous laxity at C5-6, possibly secondary to old hyperflexion injury given lack of adjacent soft tissue swelling. 2. If there is any history of acute/recent trauma, recommend CT of the cervical spine for further nikki luation. Otherwise consider nonemergent/outpatient MR for further evaluation. Reviewed, dictated and finalized at location K. IMPRESSION: 1. Findings concerning for ligamentous laxity at C5-6, possibly secondary to ol d hyperflexion injury given lack of adjacent soft tissue swelling. 2. If there is any history of acute/recent trauma, recommend CT of the cervical spine for further evaluation. Otherwise consider nonemergent/outpatient MR for further evaluation.
[2021-10-02 19:22] VITALS: BP 148/72; PULSE 102; RESP 17; TEMP 36.3; O2SAT 100
--- NOTE | 2021-10-02 19:42 | ED.GENADULT ---
HPI - General Adult General Chief complaint: Unspecified Stated complaint: Fingers and toes numbness Time Seen by Provider: 10/02/21 19:42 History of Present Illness HPI narrative: 31-year-old female presents the emergency room for evaluation of numbness and tingling in her fingers and toes. Patient states that started approximately 1 week ago, and comes and goes. Patient is unable to state about how long these episodes paresthesias last. Patient has a significant history of paresthesias in her feet, states has had an MRI which showed bulging disks and is also had nerve conduction tests. Patient was a history of rheumatoid arthritis. Patient states she was also found to have an old vertebral fracture in her lumbar spine. Patient denies any pain in her fingers or toes. Patient denies any injury. She is also reporting rashes to both shins, which she says she has been on 3 different steroid creams and had no resolution of her rash. Patient states the rash has not grown in size, and is worse when exposed to either sweat or water. Related Data Home Medications Medication Instructions Recorded Confirmed duloxetine 30 mg capsule,delayed 60 mg PO DAILY 02/03/21 08/05/21 release azelastine 205.5 mcg (0.15 %) 1 spray intranasal QHS 06/16/21 08/05/21 nasal spray clobetasol 0.05 % topical ointment 1 applic topical BID 06/16/21 08/05/21 dextroamphetamine-amphetamine 15 15 mg PO BID 06/16/21 08/05/21 mg tablet (Adderall) Allergies Allergy/AdvReac Type Severity Reaction Status Date / Time ciprofloxacin Allergy Severe Anaphylaxis Verified 04/20/21 09:25 Review of Systems Review of Systems: CONSTITUTIONAL: Denies fever, chills, or sweats. EYES: Denies visual changes, redness, or discharge. ENT: Denies rhinorrhea, congestion, sore throat, or otalgia. CARDIOVASCULAR: Denies chest pain, palpitations, or edema. RESPIRATORY: Denies cough or dyspnea. GASTROINTESTINAL: Denies abdominal pain, nausea, vomiting, or diarrhea. GENITOURINARY: Denies dysuria or hematuria. SKIN: Reports rash on bilateral lower extremities MUSCULOSKELETAL: Denies back pain, joint pain, or myalgia. NEUROLOGIC: Reports paresthesias in her fingers and toes PSYCHIATRIC: Denies anxiety or depression. [facility] Past Medical History Medical History ADHD Anxiety and depression Arthritis Asthma (Unknown) Bipolar disorder Chlamydia Eczema FH: cholecystectomy GERD (gastroesophageal reflux disease) History of gastric ulcer Hypertension (10/26/20) Pilonidal cyst without infection (Unknown) Rheumatoid arthritis (Unknown) Right ovarian cyst Surgical History Surgical History H/O endoscopy 08/2018 Family History Family History Father Family history unknown Mother Drug misuser in household Diabetes mellitus Grandparent Skin cancer Social History Social History Smoking status: Never smoker Alcohol intake: current Drinks per week: 0 Alcohol use details: social Substance use: never Substance use type: does not use 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 HEAD: Normocephalic, atraumatic. EYES: Conjunctivae normal, PERRLA and EOMI. CHEST: Clear to auscultation. No respiratory distress. No wheezes rales or rhonchi. No tenderness. HEART: Regular rate and rhythm. No murmur heard. Normal peripheral pulses. EXTREMITIES: Normal range of motion. No edema. No clubbing or cyanosis SKIN: Erythematous scaly rash to bilateral anterior lower extremities NEURO: No focal deficits. Alert and oriented x3. MAEW. CN's II-XI intact bilaterally, normal gait; strength 5/5 in BUE's/BLE'
[2021-10-02 20:38] LABS: Basophils Absolute Auto 0.1 K/mm3 (0.0-0.1); Basophils Percent Auto 0.7 % (0.2-1.2); Eosinophils Absolute Auto 0.3 K/mm3 (0-0.3); Eosinophils Percent Auto 2.9 % (0-4.4); Hematocrit 40.6 % (37.0-47.0); Hemoglobin 13.4 g/dL (12.0-15.0); Immature Granulocyte Absolute 0.04 K/mm3 (0.00-0.031); Immature Granulocyte Percent A 0.4 % (0-0.5); Lymphocytes Absolute Auto 3.03 K/mm3 (0.9-3.2); Mean Corpuscular Hemoglobin 30.1 pg (26-34); Mean Corpuscular Volume 91.2 fl (80-100); Mean Platelet Volume 10.4 fl (7.4-10.4); Monocytes Absolute Auto 0.8 K/mm3 (0.1-0.6); Monocytes Percent Auto 7.4 % (2.6-8.5); Neutrophils Absolute Auto 6.9 K/mm3 (1.3-6.7); Neutrophils Percent Auto 61.6 % (45.5-73.1); Platelet Count Result 256 k/mm3 (150-375); Red Blood Count 4.45 M/mm3 (4.2-5.4); Red Cell Distribution Width 13.6 % (11.5-14.5); White Blood Count 11.2 K/mm3 (4.5-10.0)
[2021-10-02 20:50] LABS: CRP 2.4 mg/dL (<1.0)
[2021-10-02 20:59] LABS: Erythrocyte Sedimentation Rate 37 mm/hr (0-20)
== END 2021-10-02 22:20 | disposition home or self-care (01) ==
PROVIDERS: Emergency Provider Nurse Practitioner Family; PCP Internal Medicine
DX: R20.2 Paresthesia of skin (principal); B37.2 Candidiasis of skin and nail; I10 Essential (primary) hypertension; M06.9 Rheumatoid arthritis, unspecified; M19.90 Unspecified osteoarthritis, unspecified site; K21.9 Gastro-esophageal reflux disease without esophagitis; F90.9 Attention-deficit hyperactivity disorder, unspecified type; F41.9 Anxiety disorder, unspecified; J45.909 Unspecified asthma, uncomplicated; F31.9 Bipolar disorder, unspecified
CPT/HCPCS: 36415; 72040; 72100; 81025; 85025; 85652; 86140; 99283

== ENCOUNTER 2022-02-24 14:32 | Emergency (ER) | payer BC, SELFPAY ==
[2022-02-24 15:10] VITALS: BP 138/84; PULSE 104; RESP 16; TEMP 36.5; O2SAT 100
--- NOTE | 2022-02-24 15:10 | ED.URI ---
HPI - URI/Sore Throat General Chief Complaint: Upper Respiratory Infection Stated Complaint: pt wants covid and flu test Time Seen by Provider: 02/24/22 15:19 Source: patient and RN notes reviewed Mode of arrival: ambulatory Limitations: no limitations History of Present Illness HPI Narrative: 31-year-old female with history of RA presents concern for a to day history of nasal congestion, rhinorrhea, cough, fever, body aches. She reports RA joint pain worsened by her illness. She reports she has taken Sudafed. MD elicited complaint: cough, rhinorrhea and nasal congestion Related Data Home Medications Medication Instructions Recorded Confirmed duloxetine 30 mg capsule,delayed 60 mg PO DAILY 02/03/21 02/24/22 release azelastine 205.5 mcg (0.15 %) 1 spray intranasal QHS 06/16/21 02/24/22 nasal spray dextroamphetamine-amphetamine 10 10 mg PO TID 02/24/22 02/24/22 mg tablet folic acid 1 mg tablet 1 mg PO DAILY 02/24/22 02/24/22 methotrexate sodium 2.5 mg tablet 15 mg PO WEEKLY 02/24/22 02/24/22 Allergies Allergy/AdvReac Type Severity Reaction Status Date / Time ciprofloxacin Allergy Severe Anaphylaxis Verified 02/24/22 15:03 Review of Systems Review of Systems: CONSTITUTIONAL: Reports malaise, chills, sweats, fever. EYES: Denies visual changes, redness, or discharge. ENT: Reports rhinorrhea, congestion, and sore throat. CARDIOVASCULAR: Denies chest pain, palpitations, or edema. RESPIRATORY: Reports cough. Denies dyspnea. GASTROINTESTINAL: Denies abdominal pain, nausea, vomiting, diarrhea SKIN: Denies rash or itching. MUSCULOSKELETAL: Reports joint pain and myalgia. NEUROLOGIC: Denies headache. All systems reviewed & are unremarkable except as noted in HPI and below PMFSH Past Medical History Medical History ADHD Anxiety and depression Arthritis Asthma (Unknown) Bipolar disorder Chlamydia Eczema FH: cholecystectomy GERD (gastroesophageal reflux disease) History of gastric ulcer Hypertension (10/26/20) Pilonidal cyst without infection (Unknown) Rheumatoid arthritis (Unknown) Right ovarian cyst Surgical History Surgical History H/O endoscopy 08/2018 Family History Family History Father Family history unknown Mother Drug misuser in household Diabetes mellitus Grandparent Skin cancer Social History Social History Smoking status: Never smoker Alcohol intake: current Drinks per week: 0 Alcohol use details: social Substance use: never Substance use type: does not use 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 There is no relevant family history pertinent to the presenting complaint Exam Narrative: GENERAL: Nontoxic appearing and in no acute distress. HEAD: Normocephalic EYES: PERRLA, conjunctivae clear ENT: Nares clear, turbinates edematous and erythematous, clear discharge. Mucous membranes moist. TM pearly keller with sharp light reflex bilaterally; no tragal tenderness. Oropharynx not erythematous without lesions. Tonsils not enlarged and without exudate, no drooling, no hoarseness, no trismus, uvula midline. NECK: Supple. No lymphadenopathy CHEST: Clear to auscultation, breath sounds equal. No wheezing, rhonchi, rales, or stridor. No respiratory distress, speaks in full sentences. HEART: Regular rate and rhythm. No murmur heard. SKIN: Warm, dry, no rash. NEURO: Alert and oriented x3. PSYCH: Normal mood and affect Course Course Emergency Course: Patient is aware of diagnosis, understands and agrees to treatment plan. Anticipatory guidance given. Patient agrees to follow-up as directed and is aware of
[2022-02-24 15:11] VITALS: BP 138/84; PULSE 104; RESP 16; TEMP 36.5; O2SAT 100
== END 2022-02-24 15:33 | disposition home or self-care (01) ==
PROVIDERS: Emergency Provider Nurse Practitioner; PCP Clinical Nurse Specialist
DX: J11.1 Influenza due to unidentified influenza virus with other respiratory manifestations (principal); Z20.822 Contact with and (suspected) exposure to COVID-19; M06.9 Rheumatoid arthritis, unspecified; F90.9 Attention-deficit hyperactivity disorder, unspecified type; K21.9 Gastro-esophageal reflux disease without esophagitis; I10 Essential (primary) hypertension
CPT/HCPCS: 87426; 87804; 99213; C9803; G0463

== ENCOUNTER 2022-03-07 18:20 | Emergency (ER) | payer BC, SELFPAY ==
--- NOTE | ~2022-03-07 | CT_ITS ---
EXAMINATION: CT brain wo con DATE: 03/07/2022 21:01 INDICATION: dizziness . TECHNIQUE: Computed tomography (CT) of the head was performed without intravenous contrast. The mA wa s adjusted according to patient size. Iterative reconstruction technique was employed. The dose-lengt h product was 681.00 mGy-cm. COMPARISON: None FINDINGS: No acute intracranial hemorrhage or extra-axial fluid collection. No hydrocephalus, mass, or herniation. No acute ischemic infarct. Unremarkable dural venous sinus attenuation. No acute osseous abnormality. Mucosal thickening in the ethmoid air cells, mucosal thickening and aerated secretions in the right m axillary sinus, the remaining aerated spaces are clear. IMPRESSION: No acute intracranial process. Right maxillary sinus findings may indicate acute sinusitis in the yaneth ropriate clinical context. Reviewed, dictated and finalized at location K. BIT ELECTRICIAN IMPRESSION: No acute intracranial process. Right maxillary sinus findings may indicate acut e sinusitis in the appropriate clinical context.
--- NOTE | ~2022-03-07 | XR_ITS ---
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 RESULT: Lines, tubes, and devices: None. Lungs and pleura: Clear. Cardiomediastinal silhouette: Stable. Other: No acute osseous or upper abdominal finding. IMPRESSION: No acute cardiopulmonary process. Reviewed, dictated and finalized at location K. GY CONSERVATION ENGINEER
[2022-03-07 18:33] VITALS: BP 145/92; PULSE 88; RESP 22; TEMP 36.7; O2SAT 100
[2022-03-07 19:28] LABS: Influenza A QL RT-PCR Negative (Negative); Influenza B QL RT-PCR Negative (Negative); SARS-CoV-2 RNA PCR Negative
--- NOTE | 2022-03-07 20:16 | ED.URI ---
HPI - URI/Sore Throat General Chief Complaint: Upper Respiratory Infection Stated Complaint: cough, wheezing x2 weeks Time Seen by Provider: 03/07/22 20:13 Source: patient Mode of arrival: ambulatory Limitations: no limitations History of Present Illness HPI Narrative: Patient is a 31-year-old female with a history of rheumatoid arthritis presenting to the emergency department for evaluation of multiple symptoms. Patient states she has felt unwell over the past 2 weeks, recently diagnosed with an upper respiratory infection and bronchitis and is finishing a second dose of oral steroids. Patient has tested negative for influenza, COVID. Patient reports dry cough without shortness of breath. She reports chest pain only with coughing secondary to soreness in the chest. She denies palpitations. She reports fever about 104 Fahrenheit last week, but reports resolution of fever. No fever today. Patient reports associated dizziness that is worsened with movement. She does report a spinning sensation that does improve with rest. She denies ear pain or fullness. She reports sore throat without difficulty swallowing. Patient denies abdominal pain, vomiting. She does report mild nausea. She denies dysuria or hematuria. Patient denies focal weakness or numbness. Denies difficulty with word finding or facial droop. Related Data Home Medications Medication Instructions Recorded Confirmed duloxetine 30 mg capsule,delayed 60 mg PO DAILY 02/03/21 02/24/22 release azelastine 205.5 mcg (0.15 %) 1 spray intranasal QHS 06/16/21 02/24/22 nasal spray dextroamphetamine-amphetamine 10 10 mg PO TID 02/24/22 02/24/22 mg tablet folic acid 1 mg tablet 1 mg PO DAILY 02/24/22 02/24/22 methotrexate sodium 2.5 mg tablet 15 mg PO WEEKLY 02/24/22 02/24/22 Allergies Allergy/AdvReac Type Severity Reaction Status Date / Time ciprofloxacin Allergy Severe Anaphylaxis Verified 03/07/22 20:11 Review of Systems Review of Systems: CONSTITUTIONAL: Denies fever, chills, or sweats. EYES: Denies visual changes, redness, or discharge. ENT: Reports rhinorrhea, congestion, sore throat, denies otalgia CARDIOVASCULAR: Denies chest pain, palpitations, or edema. RESPIRATORY: Reports cough, denies shortness of breath GASTROINTESTINAL: Denies abdominal pain, reports nausea, diarrhea, denies vomiting GENITOURINARY: Denies dysuria or hematuria. SKIN: Denies rash or itching. MUSCULOSKELETAL: Denies back pain, reports chronic joint pain and myalgias NEUROLOGIC: Reports mild headache, denies focal numbness or weakness, reports dizziness PMFSH Past Medical History Medical History ADHD Anxiety and depression Arthritis Asthma (Unknown) Bipolar disorder Chlamydia Eczema FH: cholecystectomy GERD (gastroesophageal reflux disease) History of gastric ulcer Hypertension (10/26/20) Pilonidal cyst without infection (Unknown) Rheumatoid arthritis (Unknown) Right ovarian cyst Surgical History Surgical History H/O endoscopy 08/2018 Family History Family History Father Family history unknown Mother Drug misuser in household Diabetes mellitus Grandparent Skin cancer Social History Social History Smoking status: Never smoker Alcohol intake: current Drinks per week: 0 Alcohol use details: social Substance use: never Substance use type: does not use Additional occupation/education comments: [employer] Spiritual care concerns: No Exam Narrative: GENERAL: Awake, alert, conversant HEAD: Normocephalic, atraumatic. EYES: 2+ PERRLA and EOMI. ENT: Nares clear, no rhinorrhea or epistaxis. Mucous membranes moist. Uvula is midline. No trismus. Mild erythema of the oropharynx. Tympanic membranes are clear bilaterally wit
--- NOTE | 2022-03-07 20:40 | ECG_ITS ---
Measurements Intervals [place] Rate: 72 P: 35 [place]: 153 QRS: 51 QRSD: 95 T: 21 QT: 376 QTc: 414 Interpretive Statements SINUS RHYTHM INCOMPLETE RIGHT BUNDLE BRANCH BLOCK BORDERLINE R WAVE PROGRESSION, ANTERIOR LEADS T WAVE ABNORMALITY IN ANTERIOR LEADS- CONSIDER ISCHEMIA ABNORMAL ECG COMPARED TO ECG 02/08/2021 00:05:19 INCOMPLETE RIGHT BUNDLE-BRANCH BLOCK NOW PRESENT Electronically Signed On 03-07-2022 22:58:55 GREASE REFINER OPERATOR by Ziggy Quesada D.O.
[2022-03-07] MEDS: SODIUM CHLORIDE 0.9% IV 1,000 ML 999 ML IV CONT (21:08)
[2022-03-07] MEDS: MECLIZINE HCL 25 MG TABLET PO (21:09)
[2022-03-07] MEDS: ONDANSETRON INJ 4 MG/2 ML VIAL IV PUSH (21:09)
[2022-03-07 21:29] LABS: Appearance Urine Slightly Cloudy (Clear); Bilirubin Urine Negative (Negative); Blood Urine Negative (Negative); Color Urine Yellow (Yellow); Glucose Urine UA Negative (Negative); Ketones Urine Negative (Negative); Leukocyte Esterase Ur Negative LEU/UL (Negative); Nitrate Urine Negative (Negative); Protein Urine Negative (Negative); Urobilinogen Urine 0.2 mg/dL (<2.0)
[2022-03-07 21:38] LABS: Mucus Urine Heavy /lpf; Squamous Epithelial Cell Urine Moderate /hpf (Few); WBC Urine 0-3 /hpf
[2022-03-07 21:45] LABS: Basophils Absolute Auto 0.1 K/mm3 (0.0-0.1); Basophils Percent Auto 0.4 % (0.2-1.2); Eosinophils Percent Auto 0.1 % (0-4.4); Hematocrit 39.5 % (37.0-47.0); Hemoglobin 13.4 g/dL (12.0-15.0); Immature Granulocyte Absolute 0.16 K/mm3 (0.00-0.031); Immature Granulocyte Percent A 0.8 % (0-0.5); Lymphocytes Absolute Auto 2.57 K/mm3 (0.9-3.2); Lymphocytes Percent Auto 13.1 % (18.3-44.2); Mean Corpuscular HGB Conc 33.9 g/dl (32-36); Mean Corpuscular Hemoglobin 30.5 pg (26-34); Mean Platelet Volume 10.1 fl (7.4-10.4); Monocytes Absolute Auto 0.6 K/mm3 (0.1-0.6); Monocytes Percent Auto 3.2 % (2.6-8.5); Neutrophils Absolute Auto 16.2 K/mm3 (1.3-6.7); Neutrophils Percent Auto 82.4 % (45.5-73.1); Platelet Count Result 272 k/mm3 (150-375); Red Blood Count 4.39 M/mm3 (4.2-5.4); White Blood Count 19.6 K/mm3 (4.5-10.0)
[2022-03-07 21:49] LABS: Add Urine Microscopic? YES
[2022-03-07 21:52] LABS: Alanine Aminotransferase 34 U/L (6-35); Albumin Level 4.1 g/dL (3.5-5.1); Alkaline Phosphatase 80 U/L (38-126); Anion Gap 10 mmol/L (8-16); Aspartate Amino Transferase 26 U/L (14-36); Bilirubin,Total 0.3 mg/dL (0.2-1.3); Blood Urea Nitrogen 13 mg/dL (7-17); Calcium 8.4 mg/dL (8.4-10.2); Carbon Dioxide 24 mmol/L (22-30); Chloride 105 mmol/L (98-107); Estimated CRCL calculation 173 ml/min; Estimated Glomerular Filt Rate > 60; Glucose 117 mg/dL (65-110); Potassium 4.1 mmol/L (3.4-5.0); Sodium 139 mmol/L (137-145)
[2022-03-07 22:03] LABS: Troponin I < 0.012 ng/mL (0.000-0.034)
[2022-03-07 22:51] LABS: Monoscreen Negative (Negative); Positive Monotest Control Positive (Positive)
[2022-03-07 22:52] LABS: Negative Monotest Control Negative (Negative)
[2022-03-07 23:09] LABS: Strep Group A RT-PCR Not Detected (Negative)
[2022-03-07 23:20] VITALS: BP 137/94; PULSE 80; RESP 20; O2SAT 96
== END 2022-03-07 23:21 | disposition home or self-care (01) ==
PROVIDERS: Emergency Medicine; Emergency Provider Emergency Medicine; PCP Internal Medicine
DX: R42 Dizziness and giddiness (principal); J32.9 Chronic sinusitis, unspecified; Z20.822 Contact with and (suspected) exposure to COVID-19; R94.31 Abnormal electrocardiogram [ECG] [EKG]; F90.9 Attention-deficit hyperactivity disorder, unspecified type; F41.9 Anxiety disorder, unspecified; F32.9 Major depressive disorder, single episode, unspecified; M19.90 Unspecified osteoarthritis, unspecified site; J45.909 Unspecified asthma, uncomplicated; K21.9 Gastro-esophageal reflux disease without esophagitis; I10 Essential (primary) hypertension
CPT/HCPCS: 36415; 70450; 71046; 80053; 81001; 81025; 84484; 85025; 86308; 87636; 87651; 93005; 96361; 96374; 99284; A9270; J2405; J7030